=== PATIENT | female | born 1945 | race Caucasian/White ===

== ENCOUNTER 2016-11-18 12:36 | Outpatient (CLI) | payer MEDICARE, OTHER | END 2016-11-18 12:37 | disposition home or self-care (01) | DX: R73.09 Other abnormal glucose (principal); K70.31 Alcoholic cirrhosis of liver with ascites; Z13.29 Encounter for screening for other suspected endocrine disorder ==

== ENCOUNTER 2020-11-01 19:44 | Outpatient (CLI) | payer MEDICARE, OTHER | END 2020-11-01 19:45 | disposition critical access hospital (66) | LOC: EMS 19:44 | PROVIDERS: ATTEND Surgery | DX: R41.0 Disorientation, unspecified (principal) | CPT/HCPCS: A0425; A0427 ==

== ENCOUNTER 2020-11-01 20:18 | Inpatient (IN) | payer MEDICARE, OTHER ==
[2020-11-01] MEDS ORDERED: SODIUM CHLORIDE 0.9% 1,000 ML IV STA (20:32)
[2020-11-01 20:48] LABS: BASOPHILS % (AUTO) 0.2 %; EOSINOPHILS % (AUTO) 0.2 %; HGB - HEMOGLOBIN 11.7 g/dL (12.0-16.0); LYMPHOCYTES # (AUTO) 0.3 10^3/uL (1.5-3.5); LYMPHOCYTES % (AUTO) 3.2 %; MEAN CORPUSCULAR HGB CONC 34.2 g/dL (32.0-36.0); MEAN CORPUSCULAR VOLUME 90.7 fL (81.0-99.0); MEAN PLATELET VOLUME 10.5 fL (7.9-10.8); MONOCYTES # (AUTO) 0.3 10^3/uL (0.0-1.0); MONOCYTES % (AUTO) 3.5 %; NEUTROPHILS # (AUTO) 8.8 10^3/uL (1.5-6.6); NEUTROPHILS % (AUTO) 92.4 %; PLT - PLATELET COUNT 187 10^3/uL (130-450); RED BLOOD COUNT 3.77 10^6/uL (4.20-5.40); RED CELL DISTRIBUTION WIDTH 12.6 % (12.0-15.0); WHITE BLOOD COUNT 9.5 x10^3/uL (4.8-10.8)
[2020-11-01 21:03] LABS: ALBUMIN 3.6 g/dL (3.2-5.5); ALBUMIN/GLOBULIN RATIO 0.9 (1.0-2.2); BILIRUBIN,TOTAL 0.7 mg/dL (0.2-1.0); CREATININE 0.5 mg/dL (0.4-1.0); TOTAL PROTEIN 7.5 g/dL (6.7-8.2)
--- NOTE | 2020-11-01 21:08 | ED Physician Documentation ---
History of Present Illness - Stated complaint Stated Complaint: AMS - Chief complaint Chief Complaint: Neuro - History obtained from History obtained from: Patient, EMS - Additonal information Additional information: Patient is brought to the emergency department by EMS after being found down at home by medics. Medics state that the patient had been felt to be "goofy" by her son, who would talk to her on the phone yesterday. The son does not see the patient very often, and is not really familiar with how she was doing otherwise. Medics report that the son felt the patient may be was growing increasingly demented. However, she still lives at home by herself. The only medications the medics could find on scene were 6 years old, and included spironolactone, glimepiride, and Flexeril. It is not clear if the patient takes any meds currently, and son did not know. The patient also could not say whether she takes any medications or what exactly happened. Medics state that the son told them that he tried to call the patient several times today and could not get a hold of her, so sent his over to check on her. The could not get into the house, and so called EMS. EMS looked in the window and saw the patient down on the floor. When they got there, the house was cold and the patient was combative and confused. However, medics state the patient has calmed down somewhat in route. Patient denies any complaints at this time. No specific pain. No shortness of breath. No nausea. Review of Systems Ten Systems: 10 systems reviewed and negative Constitutional: reports: Reviewed and negative Eyes: reports: Reviewed and negative Ears: reports: Reviewed and negative Nose: reports: Reviewed and negative Throat: reports: Reviewed and negative Cardiac: reports: Reviewed and negative Respiratory: reports: Reviewed and negative GI: reports: Reviewed and negative : reports: Reviewed and negative Skin: reports: Reviewed and negative Musculoskeletal: reports: Reviewed and negative Neurologic: reports: Reviewed and negative Psychiatric: reports: Reviewed and negative Endocrine: reports: Reviewed and negative Immunocompromised: reports: Reviewed and negative PD PAST MEDICAL HISTORY - Past Medical History Past Medical History: Yes Cardiovascular: Hypertension Endocrine/Autoimmune: Type 2 diabetes - Allergies Allergies/Adverse Reactions: Allergies Allergy/AdvReac Type Severity Reaction Status Date / Time No Known Drug Allergies Allergy Verified 11/01/20 20:29 - Social History Does the pt smoke?: Yes Smoking Status: Current every day smoker PD ED PE NORMAL - Vitals Vital signs reviewed: Yes - General General: No acute distress, Well developed/nourished (Disheveled.), Other (Awake, and responsive, but's responses are somewhat slow.) - HEENT HEENT: Atraumatic, PERRL, EOMI, Moist mucous membranes - Neck Neck: Supple, no meningeal sign, No bony TTP - Cardiac Cardiac: RRR, No murmur, Strong equal pulses - Respiratory Respiratory: No respiratory distress, Clear bilaterally - Abdomen Abdomen: Soft, Non tender, Non distended - Back Back: No CVA TTP, No spinal TTP - Derm Derm: Normal color, Warm and dry, No rash - Extremities Extremities: No deformity, No edema, No calf tenderness / cord - Neuro Neuro: 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 She moves all 4 extremities equally. No dysarthria, but verbal responses are mildly delayed.) - Psych Psych: Normal mood, Normal affect Results - Vitals Vitals: Vital Signs - 24 hr 11/01/20 11/01/20 11/01/20 20:22 21:08 21:30 Temperature 36.5 C 36.6 C Heart Rate 85 76 82 Respiratory 18 21 20 Rate Blood Pressure 102/70 102/69 115/68 O2 Saturation 98 96 97 11/01/20 11/01/20 11/01/20 22:00 22:30 23:00 Temperature 36.6 C 36.6 C 36.6 C Heart Rate 78 72 71 Respiratory 20 20 18 Rate Blood Pressure 113/65 115/62 113/79 O2 Saturation 98 98 100 Oxygen O2 Source Room air - EKG (time done) 2030 Rate: Rate (enter#) (82) Rhythm: NSR [place]: Normal Intervals: Normal HI QRS: Normal Ischemia: Normal ST segments Compare to prior EKG: Old EKG unavailable Computer interpretation: Agree with computer - Labs Labs: Laboratory Tests 11/01/20 11/01/20 11/01/20 20:42 20:42 20:42 WBC 9.5 RBC 3.77 L Hgb 11.7 L Hct 34.2 L MCV 90.7 MCH 31.0 MCHC 34.2 RDW 12.6 Plt Count 187 MPV 10.5 Neut # (Auto) 8.8 H Lymph # (Auto) 0.3 L [place] # (Auto) 0.3 Eos # (Auto) 0.0 Baso # (Auto) 0.0 Absolute Nucleated RBC 0.00 Nucleated RBC % 0.0 Sodium 136 Potassium 3.4 L Chloride 99 L Carbon Dioxide 23 Anion Gap 14.0 H BUN 12 Creatinine 0.5 Estimated GFR (MDRD) 120 Glucose 148 H Lactic Acid 3.0 H* Calcium 9.0 Total Bilirubin 0.7 AST 28 ALT 20 Alkaline Phosphatase 60 Ammonia Total Creatine Kinase Total Protein 7.5 Albumin 3.6 Globulin 3.9 Albumin/Globulin Ratio 0.9 L Urine Color Urine Clarity Urine pH Ur Specific [place] Urine Protein Urine Glucose (UA) Urine Ketones Urine Occult Blood Urine Nitrite Urine Bilirubin Urine Urobilinogen Ur Leukocyte Esterase Urine RBC Urine WBC Ur Squamous Epith Cells Urine Bacteria Urine Casts Ur Microscopic Review Urine Culture Comments Nasal Adenovirus (PCR) Nasal B. parapertussis DNA (PCR) Nasal Coronavir 229E PCR Nasal Coronavir HKU1 PCR Nasal Coronavir NL63 PCR Nasal Coronavir OC43 PCR Nasal Enterovir/Rhinovir PCR Nasal Influenza B PCR Nasal Influenza A PCR Nasal Parainfluen 1 PCR Nasal Parainfluen 2 PCR Nasal Parainfluen 3 PCR Nasal Parainfluen 4 PCR Nasal RSV (PCR) Nasal B.pertussis DNA PCR Nasal C.pneumoniae (PCR) Sb Human Metapneumo PCR Nasal M.pneumoniae (PCR) Nasal SARS-CoV-2 (PCR) 11/01/20 11/01/20 11/01/20 20:42 21:14 21:56 WBC RBC Hgb Hct MCV MCH MCHC RDW Plt Count MPV Neut # (Auto) Lymph # (Auto) [place] # (Auto) Eos # (Auto) Baso # (Auto) Absolute Nucleated RBC Nucleated RBC % Sodium Potassium Chloride Carbon Dioxide Anion Gap BUN Creatinine Estimated GFR (MDRD) Glucose Lactic Acid Calcium Total Bilirubin AST ALT Alkaline Phosphatase Ammonia 11.0 Total Creatine Kinase 199 Total Protein Albumin Globulin Albumin/Globulin Ratio Urine Color Urine Clarity Urine pH Ur Specific [place] Urine Protein Urine Glucose (UA) Urine Ketones Urine Occult Blood Urine Nitrite Urine Bilirubin Urine Urobilinogen Ur Leukocyte Esterase Urine RBC Urine WBC Ur Squamous Epith Cells Urine Bacteria Urine Casts Ur Microscopic Review Urine Culture Comments Nasal Adenovirus (PCR) NOT DETECTED Nasal B. parapertussis DNA (PCR) NOT DETECTED Nasal Coronavir 229E PCR NOT DETECTED Nasal Coronavir HKU1 PCR NOT DETECTED Nasal Coronavir NL63 PCR NOT DETECTED Nasal Coronavir OC43 PCR NOT DETECTED Nasal Enterovir/Rhinovir PCR NOT DETECTED Nasal Influenza B PCR NOT DETECTED Nasal Influenza A PCR NOT DETECTED Nasal Parainfluen 1 PCR NOT DETECTED Nasal Parainfluen 2 PCR NOT DETECTED Nasal Parainfluen 3 PCR NOT DETECTED Nasal Parainfluen 4 PCR NOT DETECTED Nasal RSV (PCR) NOT DETECTED Nasal B.pertussis DNA PCR NOT DETECTED Nasal C.pneumoniae (PCR) NOT DETECTED Sb Human Metapneumo PCR NOT DETECTED Nasal M.pneumoniae (PCR) NOT DETECTED Nasal SARS-CoV-2 (PCR) NOT DETECTED 11/01/20 22:17 WBC RBC Hgb Hct MCV MCH MCHC RDW Plt Count MPV Neut # (Auto) Lymph # (Auto) [place] # (Auto) Eos # (Auto) Baso # (Auto) Absolute Nucleated RBC Nucleated RBC % Sodium Potassium Chloride Carbon Dioxide Anion Gap BUN Creatinine Estimated GFR (MDRD) Glucose Lactic Acid Calcium Total Bilirubin AST ALT Alkaline Phosphatase Ammonia Total Creatine Kinase Total Protein Albumin Globulin Albumin/Globulin Ratio Urine Color YELLOW Urine Clarity HAZY Urine pH 5.5 Ur Specific [place] 1.020 Urine Protein 30 H Urine Glucose (UA) NEGATIVE Urine Ketones TRACE Urine Occult Blood MODERATE H Urine Nitrite POSITIVE H Urine Bilirubin NEGATIVE Urine Urobilinogen 0.2 (NORMAL) Ur Leukocyte Esterase NEGATIVE Urine RBC 6-10 H Urine WBC 0-3 Ur Squamous Epith Cells FEW Squamous Urine Bacteria Many H Urine Casts 0-2 Course Granular Ur Microscopic Review INDICATED Urine Culture Comments INDICATED Nasal Adenovirus (PCR) Nasal B. parapertussis DNA (PCR) Nasal Coronavir 229E PCR Nasal Coronavir HKU1 PCR Nasal Coronavir NL63 PCR Nasal Coronavir OC43 PCR Nasal Enterovir/Rhinovir PCR Nasal Influenza B PCR Nasal Influenza A PCR Nasal Parainfluen 1 PCR Nasal Parainfluen 2 PCR Nasal Parainfluen 3 PCR Nasal Parainfluen 4 PCR Nasal RSV (PCR) Nasal B.pertussis DNA PCR Nasal C.pneumoniae (PCR) Sb Human Metapneumo PCR Nasal M.pneumoniae (PCR) Nasal SARS-CoV-2 (PCR) - Rads (name of study) CT head Radiology: Final report received, EMP read indepedently, See rad report (neg) PD MEDICAL DECISION MAKING - ED course Complexity details: reviewed results, re-evaluated patient, considered differential, d/w patient ED course: I did review records on this patient and found that the only record we had for her was of an ultrasound 6 years ago. This did show findings consistent with cirrhosis of the liver at that time. The patient was treated with IV fluids, and worked up with laboratory studies, including lactic acid and ammonia level. She was treated with IV fluids. EKG was unremarkable for acute findings. Lactic acid level was 3. CK was normal. Patient's laboratory studies otherwise were unremarkable, but her urinalysis was positive for infection, and pt was treated with Rocephin for this. CT scan of the head did not show any acute findings. I discussed the case with Dr. Castillo, who has agreed to admit the patient to her service. Departure - Departure Disposition: [facility] DC/Xfer Clinical Impression: Altered mental status Qualifiers: Altered mental status type: delirium Qualified Code(s): R41.0 - Disorientation, unspecified UTI (urinary tract infection) Qualifiers: Urinary tract infection type: acute cystitis Hematuria presence: with hematuria Qualified Code(s): N30.01 - Acute cystitis with hematuria Condition: Serious Discharge Date/Time: 11/02/20 00:36
[2020-11-01 22:27] LABS: BILIRUBIN,URINE NEGATIVE (NEGATIVE); CLARITY,URINE HAZY (CLEAR); GLUCOSE, URINE (UA) NEGATIVE (NEGATIVE); KETONES,URINE (UA) TRACE mg/dL (NEGATIVE); LEUKOCYTE ESTERASE, URINE NEGATIVE (NEGATIVE); NITRITE,URINE POSITIVE (NEGATIVE); OCCULT BLOOD,URINE MODERATE (NEGATIVE); PH,URINE 5.5 PH (5.0-7.5); PROTEIN,URINE 30 mg/dL (NEGATIVE); UROBILINOGEN,URINE 0.2 (NORMAL) E.U./dL (NORMAL)
[2020-11-01 22:31] LABS: BACTERIA,URINE Many /HPF (None Seen); CASTS, URINE 0-2 Course Granular /LPF; SQUAMOUS EPITHELIAL CELL,UR FEW Squamous (<= Few)
[2020-11-01] MEDS ORDERED: cefTRIAXone 2 GM in SODIUM CHLORIDE 0.9% MINIBAG 100 ML IV STA (22:34)
[2020-11-01] MEDS ORDERED: cefTRIAXone 2 GM VIAL ONE (22:48)
[2020-11-01 23:15] LABS: C. PNEUMONIAE- RESP PCR PANEL NOT DETECTED
[2020-11-01] MEDS ORDERED: SODIUM CHLORIDE FLUSH 0.9% 10 ML SYRINGE IVP PRN (23:28)
[2020-11-01] MEDS ORDERED: ACETAMINOPHEN 325 MG TABLET PO PRN (23:28)
[2020-11-02] MEDS: D5NS W/20 MEQ KCL 1,000 ML IV SCH ×2 (00:44→13:04)
[2020-11-02] MEDS: POTASSIUM CHLOR 10 MEQ/100 ML 10 MEQ/100 ML BAG IV SCH ×4 (00:44→04:57)
[2020-11-02] MEDS: SODIUM CHLORIDE FLUSH 0.9% 10 ML SYRINGE IVP SCH ×3 (00:45→17:52)
--- NOTE | 2020-11-02 01:56 | HISTORY & PHYSICAL EXAMINATION ---
DATE OF SERVICE: 11/01/2020 Physician: Angelica Castillo MD HISTORY OF PRESENT ILLNESS: This is a 75-year-old white female who lives alone. There apparently is a history of cirrhosis of the liver according to our EMR and possibly diabetes. The patient was brought to the emergency room by paramedics after she was found down. Apparently, the son had tried to reach her and yesterday thought that "she sounded goofy" and today could not reach her and therefore jhad his go there, through the window saw she was on the floor and she summoned paramedics. They found her on the scene lying on her floor. She was combative and confused, but they were able to calm her down. The house was cold and there apparently was no food in the house. They found empty bottles of spironolactone and glimepiride and Flexeril, but those were 6-year-old bottles. In the ER and en route, she had no specific complaints such as shortness of breath, nausea, fever or pain. In the ER, she was speaking with garbled answers and also occasionally appropriate, but very slow to respond. ER workup included a CT of the head that was unremarkable and labs that showed elevated lactic acid level at 3 and an abnormal urinalysis consistent with a UTI. She is being admitted for management of altered mental status possibly related to a UTI. PAST MEDICAL HISTORY: Possibly diabetes, possibly cirrhosis of the liver. Both of these are presumed given her medications of spironolactone and glimepiride and what [facility] has on record. FAMILY HISTORY: Unable to obtain this. SOCIAL HISTORY: Unable to obtain this. The son did speak to the ER doctor and there apparently was a history of alcohol use in the past, but it is unknown if it was abuse and if she uses alcohol now. The patient does live alone. The son did say that he was concerned that the patient was previously starting to show signs of dementia. REVIEW OF SYSTEMS: Performed from chart review, since the patient cannot answer reliably and the pertinent positives are listed, the rest are negative in a comprehensive review. PHYSICAL EXAMINATION GENERAL: Elderly white female who is disheveled and appears older than her age. She does not appear to be in any distress. She is looking around, when asked if she is hungry she nods her head to me. VITAL SIGNS: Blood pressure 115/75, heart rate 70-80 and regular, afebrile, and room air saturation 100%. HEENT: Shows her to be disheveled and have dry oral mucosa. NECK: No JVD. CHEST: Clear. HEART: Normal heart sounds. ABDOMEN: Soft, nontender. EXTREMITIES: No clubbing, cyanosis or edema. 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 NEUROLOGIC: Nonfocal motor exam except confusion. LABORATORY DATA: Sodium 136, potassium 3.4, anion gap 14, BUN 12, creatinine 0.5, glucose 148. Lactic acid 3.0. Ammonia level 11. Normal liver tests. Normal CK of 199. White blood count 9.5, hemoglobin 11.7, platelet count 187. COVID test was negative. Urinalysis showed heavy protein, moderate occult blood, positive nitrites, high RBCs, and many bacteria and a culture was indicated. IMAGING: No reports available, but verbal report to me from the ER doctor was that her chest x-ray was unremarkable and head CT was unremarkable. EKG: None is shown to be done. IMPRESSION/DIAGNOSES 1. Altered mental status. Possibly from infection but also consider Wernicke's encephalopathy from alcohol, or underlying general dementia. 2. Urinary tract infection. 3. Fall at home. No rhabdo, per normal CK. 4. Hypokalemia. 5. Malnutrition. 6. History of cirrhosis. 7. History of diabetes mellitus. PLAN: Admit the patient to Inpatient status. Start IV fluids containing D5 with electrolytes and start glucose checks. Obtain A1c to check her diabetic status. Blood and urine cultures have already been sent and therefore continue Rocephin, 1 dose IV was already given in the ER. Await culture results to tailor treatment. Follow her lactic acid level until it has normalized. Follow her electrolytes, including magnesium and phosphorus daily. Her medication list will need to be reconciled regarding if any current management of prescription medications is being used. She will need physical therapy and occupational therapy evaluation and may likely need SNF and alternative living situation following that. Dietary consult regarding a malnutrition screen and for recommendations for diet are ordered. Social work consult regarding possible APS report regarding the living situation at home. DEEP VENOUS THROMBOSIS PROPHYLAXIS: Pharmacotherapy. CODE STATUS: FULL CODE. ATTESTATION: Patient is expected to be discharged or transferred to another facility within 96 hours: Yes. cc: Jewel Martinez MD TD: 11/01/2020 23:56 MTDD
[2020-11-02 05:06] LABS: BASOPHILS % (AUTO) 0.2 %; EOSINOPHILS % (AUTO) 0.2 %; HGB - HEMOGLOBIN 9.8 g/dL (12.0-16.0); LYMPHOCYTES # (AUTO) 0.3 10^3/uL (1.5-3.5); LYMPHOCYTES % (AUTO) 6.3 %; MEAN CORPUSCULAR HEMOGLOBIN 30.7 pg (27.0-31.0); MEAN CORPUSCULAR HGB CONC 34.3 g/dL (32.0-36.0); MEAN CORPUSCULAR VOLUME 89.7 fL (81.0-99.0); MEAN PLATELET VOLUME 11.2 fL (7.9-10.8); MONOCYTES # (AUTO) 0.3 10^3/uL (0.0-1.0); MONOCYTES % (AUTO) 5.1 %; NEUTROPHILS # (AUTO) 4.4 10^3/uL (1.5-6.6); NEUTROPHILS % (AUTO) 87.8 %; PLT - PLATELET COUNT 156 10^3/uL (130-450); RED BLOOD COUNT 3.19 10^6/uL (4.20-5.40); RED CELL DISTRIBUTION WIDTH 12.5 % (12.0-15.0); WHITE BLOOD COUNT 5.1 x10^3/uL (4.8-10.8)
[2020-11-02 05:14] LABS: CALCIUM 8.3 mg/dL (8.5-10.3); CREATININE 0.5 mg/dL (0.4-1.0); MAGNESIUM 1.3 mg/dL (1.7-2.8); PHOSPHORUS 2.4 mg/dL (2.5-4.6)
--- NOTE | 2020-11-02 07:38 | CT Report ---
PROCEDURE: HEAD WO INDICATIONS: aloc, fall TECHNIQUE: Noncontrast 4.5 mm thick angled axial sections acquired from the foramen magnum to the vertex. For r adiation dose reduction, the following was used: automated exposure control, adjustment of mA and/or kV according to patient size. COMPARISON: None available. FINDINGS: Image quality: Excellent. CSF spaces: Basal cisterns are patent. No extra-axial fluid collections. The ventricles are symmet reji in size and shape. Brain: There is a 3.2 cm diameter cystic lesion in the anterior left frontal lobe No intracranial bl eeds. There is cerebral volume loss for age, with resultant ventricular and sulcal prominence. Ther e are periventricular and deep white matter chronic small vessel ischemic changes. There is intracra nial internal carotid artery and vertebral artery atherosclerosis. Skull and face: Calvarium and visualized facial bones appear intact, without suspicious lesions. Sinuses: Visualized sinuses and mastoids are clear. IMPRESSION: 1. 3.2 cm cystic lesion in the left frontal lobe. Recommend MRI of the brain with and without contras t for definitive characterization. 2. No intracranial hemorrhage. 3. No fracture. 4. Findings and recommendations discussed with Dr. Latia Lantigua on 11/02/2020 at 0737 hours Reviewed by: Alexandria Frankel MD, PhD on 11/02/2020 7:37 AM PST Approved by: Alexandria Frankel MD, PhD on 11/02/2020 7:37 AM PST Station ID: [id number]
--- NOTE | 2020-11-02 07:39 | ED Physician Documentation ---
ED Addendum - Addendum Addendum: 11/02/20 07:37 Report received from radiology at 0730, they recommend a MRI with and without contrast while inpatient for a frontal brain cyst. A message was left on the hospitalist phone for follow-up at 2940.
[2020-11-02] MEDS ORDERED: MAGNESIUM SULFATE 2 GRAM 2 GM/50 ML BAG IV ONE (08:15)
--- NOTE | 2020-11-02 08:52 | XRAY Report ---
PROCEDURE: Chest 1 View X-Ray INDICATIONS: SOB TECHNIQUE: One view of the chest was acquired. COMPARISON: None. FINDINGS: Surgical changes and devices: None. Lungs and pleura: There are bilateral oval masslike opacities within the lungs, measuring approximat alphonso 5.6 x 4.4 cm in the right perihilar region and 4.9 x 3.4 cm in the left suprahilar region. Periph eral interstitial opacities are demonstrated bilaterally. No pleural effusions or pneumothorax. Mediastinum: Mediastinal contours appear normal. Heart size is normal. Bones and chest wall: No suspicious bony lesions. Overlying soft tissues appear unremarkable. IMPRESSION: 1. Bilateral masslike opacities demonstrated within the lungs suspicious for neoplasm. Recommend furt her evaluation with CT. Reviewed by: Abhi Hackett MD on 11/02/2020 8:51 AM RUST Approved by: Abhi Hackett MD on 11/02/2020 8:51 AM RUST Station ID: [id number]
[2020-11-02] MEDS ORDERED: cefTRIAXone 1 GM in SODIUM CHLORIDE 0.9% MINIBAG 100 ML IV SCH (09:00)
[2020-11-02] MEDS: cefTRIAXone 1 GM in SODIUM CHLORIDE 0.9% MINIBAG 100 ML IV SCH (09:06)
[2020-11-02] MEDS: ENOXAPARIN 40 MG/0.4 ML SYRINGE SUBQ SCH (09:11)
[2020-11-02] MEDS: FAMOTIDINE 20 MG TABLET PO SCH ×2 (09:12→09:23)
[2020-11-02] MEDS ORDERED: cefTRIAXone 1 GM VIAL ONE (09:18)
[2020-11-02] MEDS: NEUTRA-PHOS 250 MG TABLET PO SCH ×3 (09:22→17:52)
[2020-11-02] MEDS ORDERED: IOVERSOL 320 100 ML VIAL IVP ONE ×3 (09:51→13:37)
--- NOTE | 2020-11-02 10:58 | PHARMACY PROGRESS NOTE ---
- Best Possible Medication History Admit Date and Time: 11/01/20 8195 Processed by: Pharmacy Medication History completed: Yes Patient Interview: Completed Secondary Source(s): Physician records, Pharmacy records, Insurance records (PATIENT UNABLE TO BE INTERVIEWED. NO RECORDS FOUND FOR HOME MEDICATIONS ) As the person ultimately responsible for medication therapy, providers are able to order a medication from an existing home medication list in [facility] via the "Reconcile Routine" prior to Confirmation of that medication by software support specialist. Such practice is discouraged except when the physician, in their clinical judgment, deems that a medical need exists for a medication without regard to previous use.
[2020-11-02] MEDS: NICOTINE 14 MG PATCH TOP SCH (11:39)
[2020-11-02 12:18] LABS: HEMOGLOBIN A1c% 6.5 % (4.27-6.07)
--- NOTE | 2020-11-02 12:48 | CT Report ---
PROCEDURE: CHEST W INDICATIONS: masslike, and SOB CONTRAST: IV CONTRAST: Optiray 320 ml: 100 PO CONTRAST: *NO PO CONTRAST TECHNIQUE: After the administration of intravenous contrast, 5 mm thick sections acquired from the pulmonary api shila to the posterior costophrenic angles. 7 mm thick coronal MIP reformats were acquired. For radia tion dose reduction, the following was used: automated exposure control, adjustment of mA and/or kV according to patient size. COMPARISON: Chest radiograph from the same day. FINDINGS: Image quality: Excellent. Lungs and pleura: 3.5 x 4.2 x 4 cm solid lobulated mass in posterior aspect of left upper lobe adjace nt to the oblique fissure is noted extending to left suprahilar region and extending to involve later al pleura of left upper lobe. There is also a 4.7 x 3.9 x 4 cm soft tissue mass in left infrahilar re gion. A lobulated soft tissue density mass with internal cavitation is seen in posterior aspect of ri ght lower lobe and measures up to 3.9 x 5 x 5.5 cm in size. Finding is highly suggestive of multiple malignant pulmonary masses. Increased interstitial reticular nodular thickening in periphery of bilat eral lung crowell are seen. Additional nodular pleural thickening are seen in posterior lateral aspect of right upper lobe and measures up to 1.4 cm in size series 20 image 122. 1.8 x 0.7 cm solid nodule is also noted in anterior inferior aspect of left lower lobe extending to the oblique fissure series 20 image 176. Trace left pleural effusion is seen with adjacent left basilar atelectasis. No pneumot horax. Central and peripheral airways are patent and normal in caliber. Mediastinum: Heart size is normal. No pericardial effusion. Extensive soft tissue density within me diastinum and bilateral hilar region are seen consistent with mediastinal or hilar lymphadenopathy. M oderate amount of atherosclerotic calcifications are seen in coronary vessels and thoracic aorta. Pro minence of main pulmonary artery size is seen measuring up to 3.9 cm in diameter. No thoracic aortic aneurysm or dissection. Esophagus is normal in caliber. No hiatal hernia. Bones and chest wall: No suspicious bony lesions. Degenerative endplate changes are noted throughout thoracic spine. Chronic appearing anterior wedge compression deformity at L1 and L2 levels are seen. No axillary or supraclavicular adenopathy by size criteria. Thyroid gland is within normal limits. Abdomen: Slightly lobulated liver contour is seen with ill-defined hypodense area involving anterior periphery of right hepatic lobe. There is a 1.4 x 2 cm hypodense nodule seen in left adrenal gland wh ich may represent adenoma. Adrenal metastasis cannot be excluded. IMPRESSION: 1. Multiple large lobulated and solid appearing masses are seen scattered in left upper lobe, right l ower lobe and left infrahilar region extending to left hilum with additional nodular density seen adj acent to posterior lateral pleura of right upper lobe and anterior aspect of left lower lobe as descr ibed in detail above highly suggestive of primary or metastatic pulmonary malignant process. Small le ft pleural effusion and adjacent left basilar atelectasis. No pneumothorax. Airway is patent. 2. Mediastinal or hilar lymphadenopathy is suggestive of metastatic lymphadenopathy. 3. Prominence of main pulmonary artery which may indicate pulmonary vascular hypertension. 4. Ill-defined area of hypodensity within anterior periphery of right hepatic lobe with cirrhotic elaine earing liver concerning for liver metastasis. 5. Hypodense left adrenal nodule which may represent adrenal adenoma. Adrenal metastasis cannot be ex cluded. 6. Chronic appearing anterior wedge compression deformities at L1 and L2 levels. Reviewed by: Guillermo Lyon MD on 11/02/2020 12:46 PM PST Approved by: Guillermo Lyon MD on 11/02/2020 12:46 PM PST Station ID: [id number]
[2020-11-02] MEDS ORDERED: GLYCOPYRROLATE 1 MG/5 ML VIAL SUBQ PRN (12:49)
[2020-11-02] MEDS ORDERED: SCOPOLAMINE PATCH TOP SCH (13:00)
--- NOTE | 2020-11-02 13:36 | PROVIDER PROGRESS NOTE ---
Subjective - Prog Note Date Prog Note Date: 11/02/20 - Subjective Pt reports feeling: No change Subjective: pt is still confused, and present some shortness of breath and quite agitated and restless. I did not see pt has any seizure activity at this point. I called pt's son Apollo, report pt has masslike picture in CXR, CT is ordered and result is pending now. Current Medications - Current Medications Current Medications: Active Medications Acetaminophen (Acetaminophen 325 Mg Tablet) 650 mg PO Q4HR PRN PRN Reason: Pain or Fever > 38C (100.4F) Enoxaparin Sodium (Enoxaparin 40 Mg/0.4 Ml Syringe) 40 mg SUBQ DAILY [facility] Last Admin: 11/02/20 09:11 Dose: 40 mg Documented by: Famotidine (Famotidine 20 Mg Tablet) 20 mg PO BID [facility] Last Admin: 11/02/20 09:23 Dose: Not Given Documented by: Glycopyrrolate (Glycopyrrolate 1 Mg/5 Ml Vial) 0.2 mg SUBQ Q4HR PRN PRN Reason: EXCESSIVE SECRETIONS Potassium Chloride/Dextrose/Sod Cl () 1,000 mls @ 100 mls/hr IV .Q10H [facility] Last Admin: 11/02/20 13:04 Dose: 100 mls/hr Documented by: Ceftriaxone Sodium 1 gm/ (Sodium Chloride) 100 mls @ 200 mls/hr IV [facility]ILY [facility] Stop: 11/07/20 09:29 Last Infusion: 11/02/20 10:00 Dose: Infused Documented by: Ioversol (Ioversol 320 100 Ml Vial) 100 ml IVP ONCE ONE Stop: 11/02/20 13:38 Last Admin: 11/02/20 13:37 Dose: 100 ml Documented by: Nicotine (Nicotine 14 Mg Patch) 1 patch TOP [facility] Last Admin: 11/02/20 11:39 Dose: 1 patch Documented by: Ondansetron HCl (Ondansetron 4 Mg/2 Ml Vial) 4 mg IVP Q6HR PRN PRN Reason: Nausea / Vomiting Sodium Chloride (Sodium Chloride Flush 0.9% 10 Ml Syringe) 10 ml IVP PRN PRN PRN Reason: NEEDED PER PROVIDER ORDERS Sodium Chloride (Sodium Chloride Flush 0.9% 10 Ml Syringe) 10 ml IVP 0100,0900,1700 [facility] Last Admin: 11/02/20 09:12 Dose: Not Given Documented by: Sodium Phosphate (Neutra-Phos 250 Mg Tablet) 250 mg PO TIDWM [facility] Last Admin: 11/02/20 11:39 Dose: 250 mg Documented by: No Known Home Medications 11/02/20 Objective - Vital Signs/Intake & Output Vital Signs: Vital Signs x48h Temp Pulse Resp BP Pulse Ox 11/02/20 13:17 36.4 C L 83 22 91/58 L 96 11/02/20 07:58 37.0 C 68 18 137/54 H Intake & Output: Intake & Output 10/30/20 10/31/20 11/01/20 11/02/20 23:59 23:59 23:59 23:59 Intake Total 1100 1545.000 Output Total 350 Balance 1100 1195.000 - Objective General Appearance: positive: Alert, Mild distress. negative: Lethargic Eyes Bilateral: positive: Normal inspection, PERRL, No lid inflammation ENT: positive: ENT inspection nml, No signs of dehydration. negative: Purulent nasal drainage Neck: positive: Nml inspection, Trachea midline. negative: Thyromegaly, Tracheal deviation Respiratory: positive: Chest non-tender, Rhonchi. negative: Wheezes, Rales Cardiovascular: positive: Regular rate & rhythm, No murmur. negative: Tachycardia, Bradycardia, Systolic murmur, Diastolic murmur Peripheral Pulses: 2+ Radial (R), 2+ Radial (L) Abdomen: positive: Non-tender, Nml bowel sounds, No distention. negative: Tenderness, Guarding, Rebound Back: positive: Nml inspection. negative: CVA tenderness (R), CVA tenderness (L) Skin: positive: Color nml, Warm, Dry. negative: Cyanosis, Diaphoresis, Pallor Extremities: positive: Non-tender, Nml appearance. negative: No pedal edema Neurologic/Psychiatric: positive: Sensation nml. negative: Weakness, Sensory loss, Facial droop, Slurred/abnml speech - Lab Results Fish Bones: 11/02/20 04:40 11/02/20 04:40 Other Labs: Lab Results x24hrs 11/02/20 11/02/20 11/02/20 Range/Units 08:38 04:40 04:40 WBC 5.1 (4.8-10.8) x10^3/uL RBC 3.19 L (4.20-5.40) 10^6/uL Hgb 9.8 L (12.0-16.0) g/dL Hct 28.6 L (37.0-47.0) % MCV 89.7 (81.0-99.0) fL MCH 30.7 (27.0-31.0) pg MCHC 34.3 (32.0-36.0) g/dL RDW 12.5 (12.0-15.0) % Plt Count 156 (130-450) 10^3/uL MPV 11.2 H (7.9-10.8) fL Neut # (Auto) 4.4 (1.5-6.6) 10^3/uL Lymph # (Auto) 0.3 L (1.5-3.5) 10^3/uL Walton # (Auto) 0.3 (0.0-1.0) 10^3/uL Eos # (Auto) 0.0 (0.0-0.7) 10^3/uL Baso # (Auto) 0.0 (0.0-0.1) 10^3/uL Absolute Nucleated RBC 0.00 x10^3/uL Nucleated RBC % 0.0 /100WBC Sodium (135-145) mmol/L Potassium (3.5-5.0) mmol/L Chloride (101-111) mmol/L Carbon Dioxide (21-32) mmol/L Anion Gap (6-13) BUN (6-20) mg/dL Creatinine (0.4-1.0) mg/dL Estimated GFR (MDRD) (>89) Glucose (70-100) mg/dL Estimat Average Glucose 140 H (70-100) mg/dL Hemoglobin A1c % 6.5 H (4.27-6.07) % Lactic Acid (0.5-2.2) mmol/L Calcium (8.5-10.3) mg/dL Phosphorus (2.5-4.6) mg/dL Magnesium (1.7-2.8) mg/dL Total Bilirubin (0.2-1.0) mg/dL AST (10-42) IU/L ALT (10-60) IU/L Alkaline Phosphatase (42-121) IU/L Ammonia (7-35) umol/L Total Creatine Kinase (22-269) IU/L Total Protein (6.7-8.2) g/dL Albumin (3.2-5.5) g/dL Globulin (2.1-4.2) g/dL Albumin/Globulin Ratio (1.0-2.2) TSH (0.34-5.60) uIU/mL Urine Color Urine Clarity (CLEAR) Urine pH (5.0-7.5) PH Ur Specific Ellerbe (1.002-1.030) Urine Protein (NEGATIVE) mg/dL Urine Glucose (UA) (NEGATIVE) mg/dL Urine Ketones (NEGATIVE) mg/dL Urine Occult Blood (NEGATIVE) Urine Nitrite (NEGATIVE) Urine Bilirubin (NEGATIVE) Urine Urobilinogen (NORMAL) E.U./dL Ur Leukocyte Esterase (NEGATIVE) Urine RBC (0-5) /HPF Urine WBC (0-5) /HPF Ur Squamous Epith Cells (<= Few) Urine Bacteria (None Seen) /HPF Urine Casts /LPF Ur Microscopic Review Urine Culture Comments Nasal Adenovirus (PCR) Nasal B. parapertussis DNA (PCR) Nasal Coronavir 229E PCR Nasal Coronavir HKU1 PCR Nasal Coronavir NL63 PCR Nasal Coronavir OC43 PCR Nasal Enterovir/Rhinovir PCR Nasal Influenza B PCR Nasal Influenza A PCR Nasal Parainfluen 1 PCR Nasal Parainfluen 2 PCR Nasal Parainfluen 3 PCR Nasal Parainfluen 4 PCR Nasal RSV (PCR) Nasal B.pertussis DNA PCR Nasal C.pneumoniae (PCR) Sb Human Metapneumo PCR Nasal M.pneumoniae (PCR) Nasal SARS-CoV-2 (PCR) Ethyl Alcohol < 5.0 mg/dL 11/02/20 11/01/20 11/01/20 Range/Units 04:40 23:43 22:17 WBC (4.8-10.8) x10^3/uL RBC (4.20-5.40) 10^6/uL Hgb (12.0-16.0) g/dL Hct (37.0-47.0) % MCV (81.0-99.0) fL MCH (27.0-31.0) pg MCHC (32.0-36.0) g/dL RDW (12.0-15.0) % Plt Count (130-450) 10^3/uL MPV (7.9-10.8) fL Neut # (Auto) (1.5-6.6) 10^3/uL Lymph # (Auto) (1.5-3.5) 10^3/uL Walton # (Auto) (0.0-1.0) 10^3/uL Eos # (Auto) (0.0-0.7) 10^3/uL Baso # (Auto) (0.0-0.1) 10^3/uL Absolute Nucleated RBC x10^3/uL Nucleated RBC % /100WBC Sodium 136 (135-145) mmol/L Potassium 3.7 (3.5-5.0) mmol/L Chloride 100 L (101-111) mmol/L Carbon Dioxide 22 (21-32) mmol/L Anion Gap 14.0 H (6-13) BUN 8 (6-20) mg/dL Creatinine 0.5 (0.4-1.0) mg/dL Estimated GFR (MDRD) 120 (>89) Glucose 169 H (70-100) mg/dL Estimat Average Glucose (70-100) mg/dL Hemoglobin A1c % (4.27-6.07) % Lactic Acid 2.1 (0.5-2.2) mmol/L Calcium 8.3 L (8.5-10.3) mg/dL Phosphorus 2.4 L (2.5-4.6) mg/dL Magnesium 1.3 L (1.7-2.8) mg/dL Total Bilirubin (0.2-1.0) mg/dL AST (10-42) IU/L ALT (10-60) IU/L Alkaline Phosphatase (42-121) IU/L Ammonia (7-35) umol/L Total Creatine Kinase (22-269) IU/L Total Protein (6.7-8.2) g/dL Albumin (3.2-5.5) g/dL Globulin (2.1-4.2) g/dL Albumin/Globulin Ratio (1.0-2.2) TSH (0.34-5.60) uIU/mL Urine Color YELLOW Urine Clarity HAZY (CLEAR) Urine pH 5.5 (5.0-7.5) PH Ur Specific Ellerbe 1.020 (1.002-1.030) Urine Protein 30 H (NEGATIVE) mg/dL Urine Glucose (UA) NEGATIVE (NEGATIVE) mg/dL Urine Ketones TRACE (NEGATIVE) mg/dL Urine Occult Blood MODERATE H (NEGATIVE) Urine Nitrite POSITIVE H (NEGATIVE) Urine Bilirubin NEGATIVE (NEGATIVE) Urine Urobilinogen 0.2 (NORMAL) (NORMAL) E.U./dL Ur Leukocyte Esterase NEGATIVE (NEGATIVE) Urine RBC 6-10 H (0-5) /HPF Urine WBC 0-3 (0-5) /HPF Ur Squamous Epith Cells FEW Squamous (<= Few) Urine Bacteria Many H (None Seen) /HPF Urine Casts 0-2 Course Granular /LPF Ur Microscopic Review INDICATED Urine Culture Comments INDICATED Nasal Adenovirus (PCR) Nasal B. parapertussis DNA (PCR) Nasal Coronavir 229E PCR Nasal Coronavir HKU1 PCR Nasal Coronavir NL63 PCR Nasal Coronavir OC43 PCR Nasal Enterovir/Rhinovir PCR Nasal Influenza B PCR Nasal Influenza A PCR Nasal Parainfluen 1 PCR Nasal Parainfluen 2 PCR Nasal Parainfluen 3 PCR Nasal Parainfluen 4 PCR Nasal RSV (PCR) Nasal B.pertussis DNA PCR Nasal C.pneumoniae (PCR) Sb Human Metapneumo PCR Nasal M.pneumoniae (PCR) Nasal SARS-CoV-2 (PCR) Ethyl Alcohol mg/dL 11/01/20 11/01/20 11/01/20 Range/Units 21:56 21:14 20:42 WBC (4.8-10.8) x10^3/uL RBC (4.20-5.40) 10^6/uL Hgb (12.0-16.0) g/dL Hct (37.0-47.0) % MCV (81.0-99.0) fL MCH (27.0-31.0) pg MCHC (32.0-36.0) g/dL RDW (12.0-15.0) % Plt Count (130-450) 10^3/uL MPV (7.9-10.8) fL Neut # (Auto) (1.5-6.6) 10^3/uL Lymph # (Auto) (1.5-3.5) 10^3/uL Walton # (Auto) (0.0-1.0) 10^3/uL Eos # (Auto) (0.0-0.7) 10^3/uL Baso # (Auto) (0.0-0.1) 10^3/uL Absolute Nucleated RBC x10^3/uL Nucleated RBC % /100WBC Sodium (135-145) mmol/L Potassium (3.5-5.0) mmol/L Chloride (101-111) mmol/L Carbon Dioxide (21-32) mmol/L Anion Gap (6-13) BUN (6-20) mg/dL Creatinine (0.4-1.0) mg/dL Estimated GFR (MDRD) (>89) Glucose (70-100) mg/dL Estimat Average Glucose (70-100) mg/dL Hemoglobin A1c % (4.27-6.07) % Lactic Acid (0.5-2.2) mmol/L Calcium (8.5-10.3) mg/dL Phosphorus (2.5-4.6) mg/dL Magnesium (1.7-2.8) mg/dL Total Bilirubin (0.2-1.0) mg/dL AST (10-42) IU/L ALT (10-60) IU/L Alkaline Phosphatase (42-121) IU/L Ammonia 11.0 (7-35) umol/L Total Creatine Kinase 199 (22-269) IU/L Total Protein (6.7-8.2) g/dL Albumin (3.2-5.5) g/dL Globulin (2.1-4.2) g/dL Albumin/Globulin Ratio (1.0-2.2) TSH (0.34-5.60) uIU/mL Urine Color Urine Clarity (CLEAR) Urine pH (5.0-7.5) PH Ur Specific Ellerbe (1.002-1.030) Urine Protein (NEGATIVE) mg/dL Urine Glucose (UA) (NEGATIVE) mg/dL Urine Ketones (NEGATIVE) mg/dL Urine Occult Blood (NEGATIVE) Urine Nitrite (NEGATIVE) Urine Bilirubin (NEGATIVE) Urine Urobilinogen (NORMAL) E.U./dL Ur Leukocyte Esterase (NEGATIVE) Urine RBC (0-5) /HPF Urine WBC (0-5) /HPF Ur Squamous Epith Cells (<= Few) Urine Bacteria (None Seen) /HPF Urine Casts /LPF Ur Microscopic Review Urine Culture Comments Nasal Adenovirus (PCR) NOT DETECTED Nasal B. parapertussis DNA (PCR) NOT DETECTED Nasal Coronavir 229E PCR NOT DETECTED Nasal Coronavir HKU1 PCR NOT DETECTED Nasal Coronavir NL63 PCR NOT DETECTED Nasal Coronavir OC43 PCR NOT DETECTED Nasal Enterovir/Rhinovir PCR NOT DETECTED Nasal Influenza B PCR NOT DETECTED Nasal Influenza A PCR NOT DETECTED Nasal Parainfluen 1 PCR NOT DETECTED Nasal Parainfluen 2 PCR NOT DETECTED Nasal Parainfluen 3 PCR NOT DETECTED Nasal Parainfluen 4 PCR NOT DETECTED Nasal RSV (PCR) NOT DETECTED Nasal B.pertussis DNA PCR NOT DETECTED Nasal C.pneumoniae (PCR) NOT DETECTED Sb Human Metapneumo PCR NOT DETECTED Nasal M.pneumoniae (PCR) NOT DETECTED Nasal SARS-CoV-2 (PCR) NOT DETECTED Ethyl Alcohol mg/dL 11/01/20 11/01/20 11/01/20 Range/Units 20:42 20:42 20:42 WBC 9.5 (4.8-10.8) x10^3/uL RBC 3.77 L (4.20-5.40) 10^6/uL Hgb 11.7 L (12.0-16.0) g/dL Hct 34.2 L (37.0-47.0) % MCV 90.7 (81.0-99.0) fL MCH 31.0 (27.0-31.0) pg MCHC 34.2 (32.0-36.0) g/dL RDW 12.6 (12.0-15.0) % Plt Count 187 (130-450) 10^3/uL MPV 10.5 (7.9-10.8) fL Neut # (Auto) 8.8 H (1.5-6.6) 10^3/uL Lymph # (Auto) 0.3 L (1.5-3.5) 10^3/uL Walton # (Auto) 0.3 (0.0-1.0) 10^3/uL Eos # (Auto) 0.0 (0.0-0.7) 10^3/uL Baso # (Auto) 0.0 (0.0-0.1) 10^3/uL Absolute Nucleated RBC 0.00 x10^3/uL Nucleated RBC % 0.0 /100WBC Sodium 136 (135-145) mmol/L Potassium 3.4 L (3.5-5.0) mmol/L Chloride 99 L (101-111) mmol/L Carbon Dioxide 23 (21-32) mmol/L Anion Gap 14.0 H (6-13) BUN 12 (6-20) mg/dL Creatinine 0.5 (0.4-1.0) mg/dL Estimated GFR (MDRD) 120 (>89) Glucose 148 H (70-100) mg/dL Estimat Average Glucose (70-100) mg/dL Hemoglobin A1c % (4.27-6.07) % Lactic Acid 3.0 H* (0.5-2.2) mmol/L Calcium 9.0 (8.5-10.3) mg/dL Phosphorus (2.5-4.6) mg/dL Magnesium (1.7-2.8) mg/dL Total Bilirubin 0.7 (0.2-1.0) mg/dL AST 28 (10-42) IU/L ALT 20 (10-60) IU/L Alkaline Phosphatase 60 (42-121) IU/L Ammonia (7-35) umol/L Total Creatine Kinase (22-269) IU/L Total Protein 7.5 (6.7-8.2) g/dL Albumin 3.6 (3.2-5.5) g/dL Globulin 3.9 (2.1-4.2) g/dL Albumin/Globulin Ratio 0.9 L (1.0-2.2) TSH (0.34-5.60) uIU/mL Urine Color Urine Clarity (CLEAR) Urine pH (5.0-7.5) PH Ur Specific Ellerbe (1.002-1.030) Urine Protein (NEGATIVE) mg/dL Urine Glucose (UA) (NEGATIVE) mg/dL Urine Ketones (NEGATIVE) mg/dL Urine Occult Blood (NEGATIVE) Urine Nitrite (NEGATIVE) Urine Bilirubin (NEGATIVE) Urine Urobilinogen (NORMAL) E.U./dL Ur Leukocyte Esterase (NEGATIVE) Urine RBC (0-5) /HPF Urine WBC (0-5) /HPF Ur Squamous Epith Cells (<= Few) Urine Bacteria (None Seen) /HPF Urine Casts /LPF Ur Microscopic Review Urine Culture Comments Nasal Adenovirus (PCR) Nasal B. parapertussis DNA (PCR) Nasal Coronavir 229E PCR Nasal Coronavir HKU1 PCR Nasal Coronavir NL63 PCR Nasal Coronavir OC43 PCR Nasal Enterovir/Rhinovir PCR Nasal Influenza B PCR Nasal Influenza A PCR Nasal Parainfluen 1 PCR Nasal Parainfluen 2 PCR Nasal Parainfluen 3 PCR Nasal Parainfluen 4 PCR Nasal RSV (PCR) Nasal B.pertussis DNA PCR Nasal C.pneumoniae (PCR) Sb Human Metapneumo PCR Nasal M.pneumoniae (PCR) Nasal SARS-CoV-2 (PCR) Ethyl Alcohol mg/dL 11/01/20 Range/Units 04:40 WBC (4.8-10.8) x10^3/uL RBC (4.20-5.40) 10^6/uL Hgb (12.0-16.0) g/dL Hct (37.0-47.0) % MCV (81.0-99.0) fL MCH (27.0-31.0) pg MCHC (32.0-36.0) g/dL RDW (12.0-15.0) % Plt Count (130-450) 10^3/uL MPV (7.9-10.8) fL Neut # (Auto) (1.5-6.6) 10^3/uL Lymph # (Auto) (1.5-3.5) 10^3/uL Walton # (Auto) (0.0-1.0) 10^3/uL Eos # (Auto) (0.0-0.7) 10^3/uL Baso # (Auto) (0.0-0.1) 10^3/uL Absolute Nucleated RBC x10^3/uL Nucleated RBC % /100WBC Sodium (135-145) mmol/L Potassium (3.5-5.0) mmol/L Chloride (101-111) mmol/L Carbon Dioxide (21-32) mmol/L Anion Gap (6-13) BUN (6-20) mg/dL Creatinine (0.4-1.0) mg/dL Estimated GFR (MDRD) (>89) Glucose (70-100) mg/dL Estimat Average Glucose (70-100) mg/dL Hemoglobin A1c % (4.27-6.07) % Lactic Acid (0.5-2.2) mmol/L Calcium (8.5-10.3) mg/dL Phosphorus (2.5-4.6) mg/dL Magnesium (1.7-2.8) mg/dL Total Bilirubin (0.2-1.0) mg/dL AST (10-42) IU/L ALT (10-60) IU/L Alkaline Phosphatase (42-121) IU/L Ammonia (7-35) umol/L Total Creatine Kinase (22-269) IU/L Total Protein (6.7-8.2) g/dL Albumin (3.2-5.5) g/dL Globulin (2.1-4.2) g/dL Albumin/Globulin Ratio (1.0-2.2) TSH 1.52 (0.34-5.60) uIU/mL Urine Color Urine Clarity (CLEAR) Urine pH (5.0-7.5) PH Ur Specific Ellerbe (1.002-1.030) Urine Protein (NEGATIVE) mg/dL Urine Glucose (UA) (NEGATIVE) mg/dL Urine Ketones (NEGATIVE) mg/dL Urine Occult Blood (NEGATIVE) Urine Nitrite (NEGATIVE) Urine Bilirubin (NEGATIVE) Urine Urobilinogen (NORMAL) E.U./dL Ur Leukocyte Esterase (NEGATIVE) Urine RBC (0-5) /HPF Urine WBC (0-5) /HPF Ur Squamous Epith Cells (<= Few) Urine Bacteria (None Seen) /HPF Urine Casts /LPF Ur Microscopic Review Urine Culture Comments Nasal Adenovirus (PCR) Nasal B. parapertussis DNA (PCR) Nasal Coronavir 229E PCR Nasal Coronavir HKU1 PCR Nasal Coronavir NL63 PCR Nasal Coronavir OC43 PCR Nasal Enterovir/Rhinovir PCR Nasal Influenza B PCR Nasal Influenza A PCR Nasal Parainfluen 1 PCR Nasal Parainfluen 2 PCR Nasal Parainfluen 3 PCR Nasal Parainfluen 4 PCR Nasal RSV (PCR) Nasal B.pertussis DNA PCR Nasal C.pneumoniae (PCR) Sb Human Metapneumo PCR Nasal M.pneumoniae (PCR) Nasal SARS-CoV-2 (PCR) Ethyl Alcohol mg/dL ABX Reporting Has patient been on IV antibiotics over the past 48 hours?: Yes Assessment/Plan - Problem List (1) Altered mental status Impression: Patient still present altered mental status, Restless and some agitation. CT of the head show no acute ischemia or hemorrhage But show left frontal likely cys tic lesion 3.2 cm, CAT scan of the chest show bilaterally multiple large lung masses, highly suggestion pulmonary malignancy, and liver Metastasis. We will continue neuro Check and monitor whether patient has seizure activity. We will discuss with the patient family for further care plan Qualifiers: Altered mental status type: delirium Qualified Code(s): R41.0 - Disorientation, unspecified (2) UTI (urinary tract infection) Impression: UA culture show growing gram negative rods, We will continue treated with antibiotics Rocephin Qualifiers: Urinary tract infection type: acute cystitis Hematuria presence: with hematuria Qualified Code(s): N30.01 - Acute cystitis with hematuria (3) Pulmonary malignant neoplasm Impression: CAT scan of the chest show patient had multiple bilaterally large lung masses With mediastinal and hilar lymphadenopathy, highly suggestive Primary or metastatic pulmonary malignancy process. Patient has a long history and still cigarette smoker. We will discuss with family for next care plan, Now patient had 97% sats on room air. (4) Liver metastasis Impression: CAT scan also suggestion liver metastasis. Now liver enzyme is in the normal range. We discussed family for further Care plan (6) Fall at home Impression: Patient had a fall in the home, CK is in normal range, creatinine in the normal range. We will continue for fall precaution, We discussed with family for further care plan and to continue physical therapist right now (7) Diabetes mellitus Impression: Patient had a slightly elevated glucose, A1c 6.5, we will start with sliding scale, check her sugar and hypoglycemia protocol (8) Hypomagnesemia Impression: Patient had magnesium 1.3, we will replace magnesium and recheck
[2020-11-02] MEDS ORDERED: LORazepam 2 MG/ML VIAL IVP SCH ×2 (14:00→18:00)
[2020-11-02 15:40] LABS: MUDS CUTOFF CONCENTRATIONS CUTOFF CONC BELOW:
[2020-11-02 16:00] LABS: AMPHETAMINE SCREEN,URINE NEGATIVE (NEGATIVE); BENZODIAZEPINES SCREEN, URINE NEGATIVE (NEGATIVE); COCAINE SCREEN URINE NEGATIVE (NEGATIVE); METHADONE SCREEN, URINE NEGATIVE (NEGATIVE); METHAMPHETAMINES SCREEN, URINE NEGATIVE (NEGATIVE); OPIATE SCREEN, URINE NEGATIVE (NEGATIVE); OXYCODONE SCREEN, URINE NEGATIVE (NEGATIVE); PROPOXYPHENE SCREEN, URINE NEGATIVE (NEGATIVE); TRICYCLIC ANTIDEPRESSANT,URINE NEGATIVE (NEGATIVE)
[2020-11-02] MEDS: INSULIN ASPART 300 UNIT/3 ML PEN SUBQ SCH ×2 (17:54→21:05)
[2020-11-02] MEDS ORDERED: GADOBUTROL 7.5 MMOL/7.5 ML VIAL ONE (18:07)
[2020-11-02] MEDS ORDERED: GADOBUTROL 7.5 MMOL/7.5 ML VIAL IVP ONE (18:37)
[2020-11-02] MEDS ORDERED: IPRATROPIUM/ALBUTEROL 3 ML NEB INH PRN (18:37)
[2020-11-02] MEDS ORDERED: ALBUTEROL NEB 2.5 MG/3 ML INH PRN (18:37)
[2020-11-02] MEDS: ONDANSETRON 4 MG/2 ML VIAL IVP PRN (21:12)
[2020-11-03] MEDS: SODIUM CHLORIDE FLUSH 0.9% 10 ML SYRINGE IVP SCH ×3 (00:37→16:41)
[2020-11-03] MEDS: D5NS W/20 MEQ KCL 1,000 ML IV SCH ×2 (02:58→16:40)
[2020-11-03 05:15] LABS: BASOPHILS % (AUTO) 0.3 %; EOSINOPHILS % (AUTO) 0.5 %; HGB - HEMOGLOBIN 9.9 g/dL (12.0-16.0); LYMPHOCYTES # (AUTO) 0.5 10^3/uL (1.5-3.5); LYMPHOCYTES % (AUTO) 12.4 %; MEAN CORPUSCULAR HGB CONC 32.7 g/dL (32.0-36.0); MEAN CORPUSCULAR VOLUME 91.8 fL (81.0-99.0); MEAN PLATELET VOLUME 11.4 fL (7.9-10.8); MONOCYTES # (AUTO) 0.3 10^3/uL (0.0-1.0); MONOCYTES % (AUTO) 6.8 %; NEUTROPHILS # (AUTO) 2.9 10^3/uL (1.5-6.6); NEUTROPHILS % (AUTO) 79.5 %; PLT - PLATELET COUNT 156 10^3/uL (130-450); RED CELL DISTRIBUTION WIDTH 12.8 % (12.0-15.0); WHITE BLOOD COUNT 3.7 x10^3/uL (4.8-10.8)
[2020-11-03 05:26] LABS: CALCIUM 8.1 mg/dL (8.5-10.3); CREATININE 0.5 mg/dL (0.4-1.0); MAGNESIUM 1.5 mg/dL (1.7-2.8); PHOSPHORUS 2.7 mg/dL (2.5-4.6)
[2020-11-03] MEDS ORDERED: POTASSIUM CHLORIDE 20 MEQ TABLET PO ONE (08:24)
[2020-11-03] MEDS ORDERED: MAGNESIUM OXIDE 400 MG TABLET PO SCH (09:00)
[2020-11-03] MEDS: FAMOTIDINE 20 MG TABLET PO SCH ×2 (09:07→21:56)
[2020-11-03] MEDS: ENOXAPARIN 40 MG/0.4 ML SYRINGE SUBQ SCH (09:07)
[2020-11-03] MEDS: NICOTINE 14 MG PATCH TOP SCH (09:08)
[2020-11-03] MEDS: cefTRIAXone 1 GM in SODIUM CHLORIDE 0.9% MINIBAG 100 ML IV SCH (09:09)
[2020-11-03] MEDS: INSULIN ASPART 300 UNIT/3 ML PEN SUBQ SCH ×4 (09:12→22:05)
--- NOTE | 2020-11-03 13:40 | MRI Report ---
PROCEDURE: Brain W/WO INDICATIONS: lesion CONTRAST: IV CONTRAST: Gadavist ml: 6 TECHNIQUE: Noncontrast axial T1 spin echo, axial T2 fast spin echo, sagittal and axial FLAIR, coronal T2 fast sp in echo, axial gradient echo, axial diffusion and ADC through the brain. After the administration of contrast, axial and coronal T1 spin echo with fat saturation through the brain. COMPARISON: CT head without contrast, 11/01/2020. FINDINGS: Image quality: Excellent. CSF spaces: Basal cisterns are patent. No extra-axial fluid collections. Ventricles are normal in size and shape. Brain: There is a 3.5 x 2.6 cm cystic mass in the left frontal lobe demonstrating mild thick walled and a small hemorrhagic component in the dependent area. There is no definitive mural enhancement alt giuliano contrast enhanced images are suboptimal due to motion artifacts. There is mild mass effect to a djacent brain parenchyma. T2 hyperintensity surrounding the mass is consistent with vasogenic edema a nd/or gliosis. No midline shift. There is cerebral volume loss for age. There is mild periventricul ar white matter chronic small vessel ischemic change. The brainstem appears normal. Diffusion-weigh [place] images demonstrate no acute ischemic insults. Normal intravascular flow voids are present. Skull and face: Calvarial marrow is normal in signal. Orbits appear normal. Sinuses: Sinuses and mastoids appear clear. IMPRESSION: 1. A 3.5 x 2.6 cm cystic mass in the left frontal lobe with mildly thick wall and small hemorrhagic c omponent. Mass effect is present with surrounding echogenic edema and/or gliosis. Postcontrast images are suboptimal due to motion artifacts. No midline shift. Differential diagnosis for the mass includ e hematoma, abscess, parasitic cyst and cystic neoplasm. Recommend comparison to prior examinations, if available. Follow-up imaging is suggested. Neurosurgical consultation is recommended. Reviewed by: Kurtis Vergara MD on 11/03/2020 1:39 PM PST Approved by: Kurtis Vergara MD on 11/03/2020 1:39 PM PST Station ID: [id number]
--- NOTE | 2020-11-03 15:33 | PROVIDER PROGRESS NOTE ---
Subjective - Prog Note Date Prog Note Date: 11/03/20 - Subjective Pt reports feeling: Worse Subjective: Patient is more alert today, But she has difficult to speak And still has some confused. I called patient's son Apollo at [phone] report all image study results Including chest x-ray, CT of the chest, CT and MRI of the brain, basically images study show Multiple large tumor in bilaterally of the patient's lung special left side has more tumor than right side, high suggestive Primary or metastatic pulmonary malignant process, Liver metastases, Large cystic mass in left frontal loop of brain which suggested neurosurgical consultation. Apollo will discuss with his family and they will call back their decision, Let us know the decision for further management for pt. pt's UA culture and Sensitivity study is still pending. Current Medications - Current Medications Current Medications: Active Medications Acetaminophen (Acetaminophen 325 Mg Tablet) 650 mg PO Q4HR PRN PRN Reason: Pain or Fever > 38C (100.4F) Albuterol (Albuterol Neb 2.5 Mg/3 Ml) 2.5 mg INH RTQ4H PRN PRN Reason: Wheezing Albuterol/Ipratropium (Ipratropium/Albuterol 3 Ml Neb) 3 ml INH RTQID PRN PRN Reason: Shortness of Air/Wheezing Enoxaparin Sodium (Enoxaparin 40 Mg/0.4 Ml Syringe) 40 mg SUBQ DAILY [facility] Last Admin: 11/03/20 09:07 Dose: 40 mg Documented by: Famotidine (Famotidine 20 Mg Tablet) 20 mg PO BID [facility] Last Admin: 11/03/20 09:07 Dose: 20 mg Documented by: Glycopyrrolate (Glycopyrrolate 1 Mg/5 Ml Vial) 0.2 mg SUBQ Q4HR PRN PRN Reason: EXCESSIVE SECRETIONS Ceftriaxone Sodium 1 gm/ (Sodium Chloride) 100 mls @ 200 mls/hr IV DAILY [facility] Stop: 11/07/20 09:29 Last Infusion: 11/03/20 09:42 Dose: Infused Documented by: Potassium Chloride/Dextrose/Sod Cl () 1,000 mls @ 75 mls/hr IV .[id number] [facility] Last Infusion: 11/03/20 13:22 Dose: 75 mls/hr Documented by: Insulin Aspart (Insulin Aspart 300 Unit/3 Ml Pen) 1 - 5 unit SUBQ 0800,1200,1700,2100 [facility]; Protocol Last Admin: 11/03/20 13:27 Dose: 3 unit Documented by: Magnesium Oxide (Magnesium Oxide 400 Mg Tablet) 400 mg PO DAILYWM [facility] Last Admin: 11/03/20 09:07 Dose: 400 mg Documented by: Nicotine (Nicotine 14 Mg Patch) 1 patch TOP DAILY [facility] Last Admin: 11/03/20 09:08 Dose: 1 patch Documented by: Ondansetron HCl (Ondansetron 4 Mg/2 Ml Vial) 4 mg IVP Q6HR PRN PRN Reason: Nausea / Vomiting Last Admin: 11/02/20 21:12 Dose: 4 mg Documented by: Sodium Chloride (Sodium Chloride Flush 0.9% 10 Ml Syringe) 10 ml IVP PRN PRN PRN Reason: NEEDED PER PROVIDER ORDERS Sodium Chloride (Sodium Chloride Flush 0.9% 10 Ml Syringe) 10 ml IVP 0100,0900,1700 [facility] Last Admin: 11/03/20 09:11 Dose: Not Given Documented by: No Known Home Medications 11/02/20 Objective - Vital Signs/Intake & Output Vital Signs: Vital Signs x48h Temp Pulse Pulse Resp BP Pulse Ox 11/03/20 08:50 75 22 11/03/20 08:00 36.3 C L 72 20 120/50 L 96 Intake & Output: Intake & Output 10/31/20 11/01/20 11/02/20 11/03/20 23:59 23:59 23:59 23:59 Intake Total 1100 2628.333 2016.667 Output Total 1000 150 Balance 1100 3238.728 9353.667 - Objective General Appearance: positive: Alert, Mild distress Eyes Bilateral: positive: Normal inspection, PERRL ENT: positive: ENT inspection nml, No signs of dehydration. negative: Purulent nasal drainage Neck: positive: Nml inspection, Trachea midline. negative: Thyromegaly, Tracheal deviation Respiratory: positive: Chest non-tender. negative: Wheezes, Rales Cardiovascular: positive: Regular rate & rhythm, No murmur. negative: Tachycardia, Bradycardia, Systolic murmur, Diastolic murmur Peripheral Pulses: 2+ Radial (R), 2+ Radial (L) Abdomen: positive: Non-tender, Nml bowel sounds, No distention. negative: Tenderness, Guarding, Rebound Back: positive: Nml inspection Skin: positive: Color nml, Warm, Dry. negative: Cyanosis, Diaphoresis, Pallor Extremities: positive: Non-tender. negative: Calf tenderness Neurologic/Psychiatric: positive: Sensation nml. negative: Sensory loss, Facial droop, Slurred/abnml speech - Lab Results Fish Bones: 11/03/20 04:46 11/03/20 04:46 Other Labs: Lab Results x24hrs 11/03/20 11/03/20 11/01/20 Range/Units 04:46 04:46 22:17 WBC 3.7 L (4.8-10.8) x10^3/uL RBC 3.30 L (4.20-5.40) 10^6/uL Hgb 9.9 L (12.0-16.0) g/dL Hct 30.3 L (37.0-47.0) % MCV 91.8 (81.0-99.0) fL MCH 30.0 (27.0-31.0) pg MCHC 32.7 (32.0-36.0) g/dL RDW 12.8 (12.0-15.0) % Plt Count 156 (130-450) 10^3/uL MPV 11.4 H (7.9-10.8) fL Neut # (Auto) 2.9 (1.5-6.6) 10^3/uL Lymph # (Auto) 0.5 L (1.5-3.5) 10^3/uL [place] # (Auto) 0.3 (0.0-1.0) 10^3/uL Eos # (Auto) 0.0 (0.0-0.7) 10^3/uL Baso # (Auto) 0.0 (0.0-0.1) 10^3/uL Absolute Nucleated RBC 0.00 x10^3/uL Nucleated RBC % 0.0 /100WBC Sodium 134 L (135-145) mmol/L Potassium 3.2 L (3.5-5.0) mmol/L Chloride 103 (101-111) mmol/L Carbon Dioxide 24 (21-32) mmol/L Anion Gap 7.0 (6-13) BUN 5 L (6-20) mg/dL Creatinine 0.5 (0.4-1.0) mg/dL Estimated GFR (MDRD) 120 (>89) Glucose 208 H (70-100) mg/dL Calcium 8.1 L (8.5-10.3) mg/dL Phosphorus 2.7 (2.5-4.6) mg/dL Magnesium 1.5 L (1.7-2.8) mg/dL Urine Opiates Screen NEGATIVE (NEGATIVE) Ur Oxycodone Screen NEGATIVE (NEGATIVE) Urine Methadone Screen NEGATIVE (NEGATIVE) Ur Propoxyphene Screen NEGATIVE (NEGATIVE) Ur Barbiturates Screen NEGATIVE (NEGATIVE) Ur Tricyclics Screen NEGATIVE (NEGATIVE) Ur Phencyclidine Scrn NEGATIVE (NEGATIVE) Ur Amphetamine Screen NEGATIVE (NEGATIVE) U Methamphetamines Scrn NEGATIVE (NEGATIVE) U Benzodiazepines Scrn NEGATIVE (NEGATIVE) Urine Cocaine Screen NEGATIVE (NEGATIVE) U Cannabinoids Screen NEGATIVE (NEGATIVE) ABX Reporting Has patient been on IV antibiotics over the past 48 hours?: Yes Assessment/Plan - Problem List (1) Altered mental status Impression: 11/03 Patient still present some confused but more alert, She tried to speak but could not speak out. MRI of brain show large cystic mass in the left frontal lobe. We will closely monitor patient if pt has any seizure, neuro Check fo rthe patient, Patient still present altered mental status, Restless and some agitation. CT of the head show no acute ischemia or hemorrhage But show left frontal likely cystic lesion 3.2 cm, CAT scan of the chest show bilaterally multiple large lung masses, highly suggestion pulmonary malignancy, and liver Metastasis. We will continue neuro Check and monitor whether patient has seizure activity. We will discuss with the patient family for further care plan (2) UTI (urinary tract infection) Impression: 11/03, Urine culture show positive E. coli, sensitive study is pending, Continue treated with Rocephin UA culture show growing gram negative rods, We will continue treated with antibiotics Rocephin (3) Pulmonary malignant neoplasm Impression: 11/03 Discussed all patient image study results with the patient's son Apollo, Patient family will call us back, Let us know the decision for further management for pt CAT scan of the chest show patient had multiple bilaterally large lung masses With mediastinal and hilar lymphadenopathy, highly suggestive Primary or me tastatic pulmonary malignancy process. Patient has a long history and still cigarette smoker. We will discuss with family for next care plan, Now patient had 97% sats on room air. (4) Liver metastasis Impression: CAT scan also suggestion liver metastasis. Now liver enzyme is in the normal range. We discussed family for further Care plan (6) Fall at home Impression: Patient had a fall in the home, CK is in normal range, creatinine in the normal range. We will continue for fall precaution, We discussed with family for further care plan and to continue physical therapist right now (7) Diabetes mellitus Impression: 11/03,Patient had a slight elevated glucose in the morning, Add Lantus in the evening 5 unit Patient had a slightly elevated glucose, A1c 6.5, we will start with sliding scale, check her sugar and hypoglycemia protocol (8) Hypomagnesemia Impression: Patient had magnesium 1.3, we will replace magnesium and recheck Qualifiers: Altered mental status type: delirium Qualified Code(s): R41.0 - Disorientation, unspecified (2) UTI (urinary tract infection) Qualifiers: Urinary tract infection type: acute cystitis Hematuria presence: with hematuria Qualified Code(s): N30.01 - Acute cystitis with hematuria
[2020-11-03] MEDS: ONDANSETRON 4 MG/2 ML VIAL IVP PRN (19:44)
[2020-11-03] MEDS ORDERED: INSULIN GLARGINE 300 UNIT/3 ML PEN SUBQ SCH (21:00)
[2020-11-03] MEDS ORDERED: D5NS W/20 MEQ KCL 1,000 ML IV SCH (21:46)
[2020-11-03] MEDS ORDERED: levETIRAcetam INJ 1,000 MG in SODIUM CHLORIDE 0.9% 100ML 100 ML IV STA (21:53)
[2020-11-03] MEDS ORDERED: DEXAMETHASONE 10 MG/ML VIAL IVP ONE (21:54)
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
[2020-11-04] MEDS ORDERED: LOPERAMIDE 2 MG CAPSULE PO PRN (00:51)
[2020-11-04] MEDS ORDERED: ATROPINE 1% OPHTH DROPS 2 ML SL PRN (00:51)
[2020-11-04] MEDS ORDERED: LORazepam 2 MG/ML VIAL IVP PRN (00:51)
[2020-11-04] MEDS ORDERED: MORPHINE SOL 10 MG/0.5 ML ORAL SYRINGE SL PRN ×2 (00:51→00:55)
[2020-11-04] MEDS ORDERED: ONDANSETRON ODT 4 MG TABLET TL PRN (00:51)
[2020-11-04] MEDS ORDERED: ACETAMINOPHEN 160 MG/5 ML SUSP UDC PO PRN (00:51)
[2020-11-04] MEDS ORDERED: CARBOXYMETHYLCELLULOSE OPHTH DROPS EACHEYE PRN (00:51)
[2020-11-04] MEDS: SCOPOLAMINE PATCH TOP SCH (02:04)
[2020-11-04] MEDS: ONDANSETRON 4 MG/2 ML VIAL IVP PRN (02:05)
[2020-11-04] MEDS: SODIUM CHLORIDE FLUSH 0.9% 10 ML SYRINGE IVP SCH ×3 (03:21→18:27)
[2020-11-04] MEDS: NICOTINE 14 MG PATCH TOP SCH (09:03)
[2020-11-04] MEDS: cefTRIAXone 1 GM in SODIUM CHLORIDE 0.9% MINIBAG 100 ML IV SCH (10:20)
--- NOTE | 2020-11-04 22:22 | PROVIDER PROGRESS NOTE ---
Assessment/Plan - Problem List (1) Seizures Assessment/Plan: There have been no further seizures ever since the Keppra loading dose. We will start oral p.o. Keppra (2) Lesion of brain Assessment/Plan: The MRI done yesterday showed the brain mass, surrounding hemorrhage and surrounding edema. It may be the reason for being nonverbal and very likely the cause of the seizures and the fall at home. Lovenox was stopped. She has improved by receiving IV Decadron and a Keppra loading dose. The son visited her today. She is now in comfort care orders. Hospice has also been ordered to see her as she may last this way for weeks (3) Altered mental status Qualifiers: Altered mental status type: disorientation Qualified Code(s): R41.0 - Disorientation, unspecified Assessment/Plan: She continues to be nonverbal but did tell a [employer] no once in yes months. She nods her head and shakes to give an answer. (4) Pulmonary malignant neoplasm Assessment/Plan: She has several masses on lung imaging, with mets to the liver, adrenal gland and brain. Prognosis is poor. No more labs are being ordered, as she is on Comfort measures. Hospice Consult has been ordered (5) UTI (urinary tract infection) Assessment/Plan: She completed a 3-day course of IV antibiotics, this is now stopped (6) Bronchitis Assessment/Plan: She is able to clear her secretions now that she is alert, unlike yesterday when she was somnolent between seizures. She does not have the capacity to follow directions to use an inhaler (7) Tobacco use Assessment/Plan: She has the physique of somebody with COPD. She is getting a nicotine patch topically while here - Current Meds Current Meds: Current Medications Generic Name Dose Route Start Last Admin Trade Name Freq PRN Reason Stop Dose Admin Morphine Sulfate 10 mg 11/04/20 00:55 11/04/20 18:39 Morphine Robina 10 Mg/0.5 Ml Oral Syringe SL 10 mg Q2HR PRN Administration Dyspnea Nicotine 1 patch 11/02/20 12:00 11/04/20 09:03 Nicotine 14 Mg Patch TOP 1 patch DAILY [facility]IN Administration Ondansetron HCl 4 mg 11/01/20 23:28 11/04/20 02:05 Ondansetron 4 Mg/2 Ml Vial IVP 4 mg Q6HR PRN Administration Nausea / Vomiting Scopolamine HBr 1 patch 11/04/20 01:00 11/04/20 02:04 Scopolamine Patch TOP 1 patch Q3D PRAVIN Administration Sodium Chloride 10 ml 11/02/20 01:00 11/04/20 18:27 Sodium Chloride Flush 0.9% 10 Ml Syringe IVP 10 ml 0100,0900,1700 PR[facility] Administration - Lab Result Fish Bone Diagrams: 11/03/20 04:46 11/03/20 04:46 - Additional Planning My Orders: My Active Orders 11/03/20 22:38 HEPATITIS B SURFACE AG W CONF [REFLAB] Stat HEPATITIS C AB RFLX RNA QN [REFLAB] Stat HIV AB/AG 4TH GEN W/REFLEX [REFLAB] Stat 11/04/20 00:51 Comfort Care [RC] QSHIFT Cooling Unit [RC] PRN Oral Care - Nursing [RC] BID Turn and Reposition [RC] PRN Warming Unit [RC] PRN Acetaminophen [Tylenol] 640 mg PO Q4H PRN Atropine 1% Ophth Drops [Isopto Atropine 1% Ophth Drops] 1 - 4 drops SL Q2H PRN Carboxymethylcellulose 1% Opht [Refresh 1% Ophth Drops] 1 drops EACHEYE QID PRN LORazepam INJ [Ativan Inj (Vial)] 1 mg IVP Q6H PRN Loperamide [Imodium] 2 mg PO Q2H PRN Ondansetron Odt [Zofran Odt] 4 mg TL Q8H PRN 11/04/20 00:55 Morphine Oral Soln [Roxanol] 10 mg SL Q2HR PRN 11/04/20 01:00 Scopolamine Patch [Transderm-Scop] 1 patch TOP Q3D Subjective - Subjective Patient Reports: Feeling Better, Other (Not communicative with me but is much more alert than yesterday. Able to shake her head no when asked if she is hungry. The [employer] stated that she ate good portion of her diet.) Objective Vital Signs: Vital Signs - 24 hr 11/03/20 11/04/20 11/04/20 22:50 00:31 08:27 Temperature 36.2 C L 36.2 C L Heart Rate [ 69 66 59 L Brachial] Respiratory 19 18 Rate Blood Pressure 157/68 H 168/65 H 139/56 H [Right Brachial artery] O2 Saturation 98 95 97 Oxygen O2 Source Room air I&O (Last 24 Hrs): Intake and Output Totals x24h 11/02/20 11/03/20 11/04/20 23:59 23:59 23:59 Intake Total 2628.333 2981.667 1251 Output Total 1000 450 425 Balance 3873.041 8576.667 826 General: Alert, No acute distress HEENT: Atraumatic, Other (Poor dentition) Neck: Supple Neuro: Alert, Disoriented, Other (Not communicative, but shakes her head appropriately for yes and no answers. Moves all extremities spontaneous) Cardiovascular: Regular rate Respiratory: No respiratory distress, Breath sounds nml Abdomen: Soft Extremities: No edema, No tenderness/swelling, Other (Tips of fingers are excori ated) - Results Results: Laboratory Results WBC 3.7 x10^3/uL (4.8-10.8) L 11/03/20 04:46 RBC 3.30 10^6/uL (4.20-5.40) L 11/03/20 04:46 Hgb 9.9 g/dL (12.0-16.0) L 11/03/20 04:46 Hct 30.3 % (37.0-47.0) L 11/03/20 04:46 MCV 91.8 fL (81.0-99.0) 11/03/20 04:46 MCH 30.0 pg (27.0-31.0) 11/03/20 04:46 MCHC 32.7 g/dL (32.0-36.0) 11/03/20 04:46 RDW 12.8 % (12.0-15.0) 11/03/20 04:46 Plt Count 156 10^3/uL (130-450) 11/03/20 04:46 MPV 11.4 fL (7.9-10.8) H 11/03/20 04:46 Neut # (Auto) 2.9 10^3/uL (1.5-6.6) 11/03/20 04:46 Lymph # (Auto) 0.5 10^3/uL (1.5-3.5) L 11/03/20 04:46 [place] # (Auto) 0.3 10^3/uL (0.0-1.0) 11/03/20 04:46 Eos # (Auto) 0.0 10^3/uL (0.0-0.7) 11/03/20 04:46 Baso # (Auto) 0.0 10^3/uL (0.0-0.1) 11/03/20 04:46 Absolute Nucleated RBC 0.00 x10^3/uL 11/03/20 04:46 Nucleated RBC % 0.0 /100WBC 11/03/20 04:46 Sodium 134 mmol/L (135-145) L 11/03/20 04:46 Potassium 3.2 mmol/L (3.5-5.0) L 11/03/20 04:46 Chloride 103 mmol/L (101-111) 11/03/20 04:46 Carbon Dioxide 24 mmol/L (21-32) 11/03/20 04:46 Anion Gap 7.0 (6-13) 11/03/20 04:46 BUN 5 mg/dL (6-20) L 11/03/20 04:46 Creatinine 0.5 mg/dL (0.4-1.0) 11/03/20 04:46 Estimated GFR (MDRD) 120 (>89) 11/03/20 04:46 Glucose 208 mg/dL (70-100) H 11/03/20 04:46 Estimat Average Glucose 140 mg/dL (70-100) H 11/02/20 04:40 Hemoglobin A1c % 6.5 % (4.27-6.07) H 11/02/20 04:40 Lactic Acid 2.1 mmol/L (0.5-2.2) 11/01/20 23:43 Calcium 8.1 mg/dL (8.5-10.3) L 11/03/20 04:46 Phosphorus 2.7 mg/dL (2.5-4.6) 11/03/20 04:46 Magnesium 1.5 mg/dL (1.7-2.8) L 11/03/20 04:46 Total Bilirubin 0.7 mg/dL (0.2-1.0) 11/01/20 20:42 AST 28 IU/L (10-42) 11/01/20 20:42 ALT 20 IU/L (10-60) 11/01/20 20:42 Alkaline Phosphatase 60 IU/L (42-121) 11/01/20 20:42 Ammonia 11.0 umol/L (7-35) 11/01/20 21:14 Total Creatine Kinase 199 IU/L (22-269) 11/01/20 20:42 Total Protein 7.5 g/dL (6.7-8.2) 11/01/20 20:42 Albumin 3.6 g/dL (3.2-5.5) 11/01/20 20:42 Globulin 3.9 g/dL (2.1-4.2) 11/01/20 20:42 Albumin/Globulin Ratio 0.9 (1.0-2.2) L 11/01/20 20:42 TSH 1.52 uIU/mL (0.34-5.60) 11/01/20 04:40 Urine Color YELLOW 11/01/20 22:17 Urine Clarity HAZY (CLEAR) 11/01/20 22:17 Urine pH 5.5 PH (5.0-7.5) 11/01/20 22:17 Ur Specific [place] 1.020 (1.002-1.030) 11/01/20 22:17 Urine Protein 30 mg/dL (NEGATIVE) H 11/01/20 22:17 Urine Glucose (UA) NEGATIVE mg/dL (NEGATIVE) 11/01/20 22:17 Urine Ketones TRACE mg/dL (NEGATIVE) 11/01/20 22:17 Urine Occult Blood MODERATE (NEGATIVE) H 11/01/20 22:17 Urine Nitrite POSITIVE (NEGATIVE) H 11/01/20 22:17 Urine Bilirubin NEGATIVE (NEGATIVE) 11/01/20 22:17 Urine Urobilinogen 0.2 (NORMAL) E.U./dL (NORMAL) 11/01/20 22:17 Ur Leukocyte Esterase NEGATIVE (NEGATIVE) 11/01/20 22:17 Urine RBC 6-10 /HPF (0-5) H 11/01/20 22:17 Urine WBC 0-3 /HPF (0-5) 11/01/20 22:17 Ur Squamous Epith Cells FEW Squamous (<= Few) 11/01/20 22:17 Urine Bacteria Many /HPF (None Seen) H 11/01/20 22:17 Urine Casts 0-2 Course Granular /LPF 11/01/20 22:17 Ur Microscopic Review INDICATED 11/01/20 22:17 Urine Culture Comments INDICATED 11/01/20 22:17 Nasal Adenovirus (PCR) NOT DETECTED 11/01/20 21:56 Nasal B. parapertussis DNA (PCR) NOT DETECTED 11/01/20 21:56 Nasal Coronavir 229E PCR NOT DETECTED 11/01/20 21:56 Nasal Coronavir HKU1 PCR NOT DETECTED 11/01/20 21:56 Nasal Coronavir NL63 PCR NOT DETECTED 11/01/20 21:56 Nasal Coronavir OC43 PCR NOT DETECTED 11/01/20 21:56 Nasal Enterovir/Rhinovir PCR NOT DETECTED 11/01/20 21:56 Nasal Influenza B PCR NOT DETECTED 11/01/20 21:56 Nasal Influenza A PCR NOT DETECTED 11/01/20 21:56 Nasal Parainfluen 1 PCR NOT DETECTED 11/01/20 21:56 Nasal Parainfluen 2 PCR NOT DETECTED 11/01/20 21:56 Nasal Parainfluen 3 PCR NOT DETECTED 11/01/20 21:56 Nasal Parainfluen 4 PCR NOT DETECTED 11/01/20 21:56 Nasal RSV (PCR) NOT DETECTED 11/01/20 21:56 Nasal B.pertussis DNA PCR NOT DETECTED 11/01/20 21:56 Nasal C.pneumoniae (PCR) NOT DETECTED 11/01/20 21:56 Sb Human Metapneumo PCR NOT DETECTED 11/01/20 21:56 Nasal M.pneumoniae (PCR) NOT DETECTED 11/01/20 21:56 Nasal SARS-CoV-2 (PCR) NOT DETECTED 11/01/20 21:56 Urine Opiates Screen NEGATIVE (NEGATIVE) 11/01/20 22:17 Ur Oxycodone Screen NEGATIVE (NEGATIVE) 11/01/20 22:17 Urine Methadone Screen NEGATIVE (NEGATIVE) 11/01/20 22:17 Ur Propoxyphene Screen NEGATIVE (NEGATIVE) 11/01/20 22:17 Ur Barbiturates Screen NEGATIVE (NEGATIVE) 11/01/20 22:17 Ur Tricyclics Screen NEGATIVE (NEGATIVE) 11/01/20 22:17 Ur Phencyclidine Scrn NEGATIVE (NEGATIVE) 11/01/20 22:17 Ur Amphetamine Screen NEGATIVE (NEGATIVE) 11/01/20 22:17 U Methamphetamines Scrn NEGATIVE (NEGATIVE) 11/01/20 22:17 U Benzodiazepines Scrn NEGATIVE (NEGATIVE) 11/01/20 22:17 Urine Cocaine Screen NEGATIVE (NEGATIVE) 11/01/20 22:17 U Cannabinoids Screen NEGATIVE (NEGATIVE) 11/01/20 22:17 Ethyl Alcohol < 5.0 mg/dL 11/02/20 08:38 HIV 1&2 Antibody Rapid NEGATIVE (NEGATIVE) 11/03/20 22:38
[2020-11-05] MEDS: levETIRAcetam 250 MG TABLET PO SCH ×2 (01:11→08:39)
[2020-11-05] MEDS: SODIUM CHLORIDE FLUSH 0.9% 10 ML SYRINGE IVP SCH ×3 (01:13→16:17)
[2020-11-05] MEDS: NICOTINE 14 MG PATCH TOP SCH (08:36)
[2020-11-05] MEDS: levETIRAcetam 500 MG/5 ML UDC PO SCH (22:04)
--- NOTE | 2020-11-05 22:34 | PROVIDER PROGRESS NOTE ---
Assessment/Plan - Problem List (1) Lesion of brain Assessment/Plan: This is felt to be a metastatic lesion. There is surrounding small amount of hemorrhage as well as brain edema. She got IV Decadron when this was diagnosed and her Lovenox was stopped. She is now getting Comfort Care. I spoke to the son Apollo today and answered questions to his satisfaction. I told him I cannot estimate how much more recovery she will have in neurologic status; the patient was able to speak a full sentence with Apollo's brother who visited the patient here today. I cannot tell if the patient will be able to stand or pivot or walk or feed herself. She currently is deconditioned from being in bed many days. The terminal operator plan however is Hospice for end-of-life care and social work was able to speak to Apollo and tell him that Hospice can accept the patient on Friday (today Friday). (2) Comfort measures only status Assessment/Plan: As above. She gets blood pressure checked once a day only. She is not on telemetry. She is not getting SCDs. There are no more blood draws ordered. A Reese is in place. Meds are ordered as needed for various symptoms, for her comfort. (3) Seizures Assessment/Plan: 2 days ago she had seizures approximately every 15 minutes that lasted 20 seconds and she was lethargic in between but not entirely postictal, she could not handle her secretions on that day. She got IV Keppra loaded IV that day and now is on Keppra be p.o. twice daily. She is more awakeyesterday and today, she is eating and drinking and today was able to communicate more. Will continue po Keppra empiricallly. (4) Altered mental status Qualifiers: Altered mental status type: disorientation Qualified Code(s): R41.0 - Disorientation, unspecified Assessment/Plan: As above. (5) Pulmonary malignant neoplasm Assessment/Plan: Work-up during this hospitalization showed multiple lung masses which are new findings. This is considered to be malignant and probably her primary focus. (6) UTI (urinary tract infection) Assessment/Plan: She was starting to get IV antibiotics empirically since the new altered mental status was felt to be from bacteriuria. She got 3 days of IV ceftriaxone and it has now been stopped (7) Bronchitis Assessment/Plan: She was unable to clear her secretions on the day that she was somnolent with frequent seizures. She is now comfortable, getting appropriate meds in the comfort care package. (8) Tobacco use Assessment/Plan: Nicotine patch topically is ordered. - Current Meds Current Meds: Current Medications Generic Name Dose Route Start Last Admin Trade Name Freq PRN Reason Stop Dose Admin Levetiracetam 500 mg 11/05/20 21:00 11/05/20 22:04 Levetiracetam 500 Mg/5 Ml Udc PO 500 mg BID PRAVIN Administration Morphine Sulfate 10 mg 11/04/20 00:55 11/04/20 18:39 Morphine Robina 10 Mg/0.5 Ml Oral Syringe SL 10 mg Q2HR PRN Administration Dyspnea Nicotine 1 patch 11/02/20 12:00 11/05/20 08:36 Nicotine 14 Mg Patch TOP 1 patch DAILY PRAVIN Administration Ondansetron HCl 4 mg 11/01/20 23:28 11/04/20 02:05 Ondansetron 4 Mg/2 Ml Vial IVP 4 mg Q6HR PRN Administration Nausea / Vomiting Scopolamine HBr 1 patch 11/04/20 01:00 11/04/20 02:04 Scopolamine Patch TOP 1 patch Q3D PRAVIN Administration Sodium Chloride 10 ml 11/02/20 01:00 11/05/20 16:17 Sodium Chloride Flush 0.9% 10 Ml Syringe IVP Not Given 0100,0900,1700 PRAVIN - Lab Result Fish Bone Diagrams: 11/03/20 04:46 11/03/20 04:46 Subjective - Subjective Patient Reports: Resting Comfortably, Other (Sleeping) Objective Vital Signs: Vital Signs - 24 hr 11/05/20 08:36 Temperature 37.0 C Heart Rate [ 72 Radial] Respiratory 18 Rate Blood Pressure 117/58 L [Right Brachial artery] O2 Saturation 94 Oxygen O2 Source Room air I&O (Last 24 Hrs): Intake and Output Totals x24h 11/03/20 11/04/20 11/05/20 23:59 23:59 23:59 Intake Total 2981.667 1351 540 Output Total 450 425 100 Balance 2531.667 926 440 General: Other (Asleep) HEENT: Mucous membr. moist/pink Neck: Supple Neuro: Alert Cardiovascular: Regular rate Respiratory: No respiratory distress Abdomen: Soft Extremities: No edema - Results Results: Laboratory Results WBC 3.7 x10^3/uL (4.8-10.8) L 11/03/20 04:46 RBC 3.30 10^6/uL (4.20-5.40) L 11/03/20 04:46 Hgb 9.9 g/dL (12.0-16.0) L 11/03/20 04:46 Hct 30.3 % (37.0-47.0) L 11/03/20 04:46 MCV 91.8 fL (81.0-99.0) 11/03/20 04:46 MCH 30.0 pg (27.0-31.0) 11/03/20 04:46 MCHC 32.7 g/dL (32.0-36.0) 11/03/20 04:46 RDW 12.8 % (12.0-15.0) 11/03/20 04:46 Plt Count 156 10^3/uL (130-450) 11/03/20 04:46 MPV 11.4 fL (7.9-10.8) H 11/03/20 04:46 Neut # (Auto) 2.9 10^3/uL (1.5-6.6) 11/03/20 04:46 Lymph # (Auto) 0.5 10^3/uL (1.5-3.5) L 11/03/20 04:46 Hettinger # (Auto) 0.3 10^3/uL (0.0-1.0) 11/03/20 04:46 Eos # (Auto) 0.0 10^3/uL (0.0-0.7) 11/03/20 04:46 Baso # (Auto) 0.0 10^3/uL (0.0-0.1) 11/03/20 04:46 Absolute Nucleated RBC 0.00 x10^3/uL 11/03/20 04:46 Nucleated RBC % 0.0 /100WBC 11/03/20 04:46 Sodium 134 mmol/L (135-145) L 11/03/20 04:46 Potassium 3.2 mmol/L (3.5-5.0) L 11/03/20 04:46 Chloride 103 mmol/L (101-111) 11/03/20 04:46 Carbon Dioxide 24 mmol/L (21-32) 11/03/20 04:46 Anion Gap 7.0 (6-13) 11/03/20 04:46 BUN 5 mg/dL (6-20) L 11/03/20 04:46 Creatinine 0.5 mg/dL (0.4-1.0) 11/03/20 04:46 Estimated GFR (MDRD) 120 (>89) 11/03/20 04:46 Glucose 208 mg/dL (70-100) H 11/03/20 04:46 Estimat Average Glucose 140 mg/dL (70-100) H 11/02/20 04:40 Hemoglobin A1c % 6.5 % (4.27-6.07) H 11/02/20 04:40 Lactic Acid 2.1 mmol/L (0.5-2.2) 11/01/20 23:43 Calcium 8.1 mg/dL (8.5-10.3) L 11/03/20 04:46 Phosphorus 2.7 mg/dL (2.5-4.6) 11/03/20 04:46 Magnesium 1.5 mg/dL (1.7-2.8) L 11/03/20 04:46 Total Bilirubin 0.7 mg/dL (0.2-1.0) 11/01/20 20:42 AST 28 IU/L (10-42) 11/01/20 20:42 ALT 20 IU/L (10-60) 11/01/20 20:42 Alkaline Phosphatase 60 IU/L (42-121) 11/01/20 20:42 Ammonia 11.0 umol/L (7-35) 11/01/20 21:14 Total Creatine Kinase 199 IU/L (22-269) 11/01/20 20:42 Total Protein 7.5 g/dL (6.7-8.2) 11/01/20 20:42 Albumin 3.6 g/dL (3.2-5.5) 11/01/20 20:42 Globulin 3.9 g/dL (2.1-4.2) 11/01/20 20:42 Albumin/Globulin Ratio 0.9 (1.0-2.2) L 11/01/20 20:42 TSH 1.52 uIU/mL (0.34-5.60) 11/01/20 04:40 Urine Color YELLOW 11/01/20 22:17 Urine Clarity HAZY (CLEAR) 11/01/20 22:17 Urine pH 5.5 PH (5.0-7.5) 11/01/20 22:17 Ur Specific Posey 1.020 (1.002-1.030) 11/01/20 22:17 Urine Protein 30 mg/dL (NEGATIVE) H 11/01/20 22:17 Urine Glucose (UA) NEGATIVE mg/dL (NEGATIVE) 11/01/20 22:17 Urine Ketones TRACE mg/dL (NEGATIVE) 11/01/20 22:17 Urine Occult Blood MODERATE (NEGATIVE) H 11/01/20 22:17 Urine Nitrite POSITIVE (NEGATIVE) H 11/01/20 22:17 Urine Bilirubin NEGATIVE (NEGATIVE) 11/01/20 22:17 Urine Urobilinogen 0.2 (NORMAL) E.U./dL (NORMAL) 11/01/20 22:17 Ur Leukocyte Esterase NEGATIVE (NEGATIVE) 11/01/20 22:17 Urine RBC 6-10 /HPF (0-5) H 11/01/20 22:17 Urine WBC 0-3 /HPF (0-5) 11/01/20 22:17 Ur Squamous Epith Cells FEW Squamous (<= Few) 11/01/20 22:17 Urine Bacteria Many /HPF (None Seen) H 11/01/20 22:17 Urine Casts 0-2 Course Granular /LPF 11/01/20 22:17 Ur Microscopic Review INDICATED 11/01/20 22:17 Urine Culture Comments INDICATED 11/01/20 22:17 Nasal Adenovirus (PCR) NOT DETECTED 11/01/20 21:56 Nasal B. parapertussis DNA (PCR) NOT DETECTED 11/01/20 21:56 Nasal Coronavir 229E PCR NOT DETECTED 11/01/20 21:56 Nasal Coronavir HKU1 PCR NOT DETECTED 11/01/20 21:56 Nasal Coronavir NL63 PCR NOT DETECTED 11/01/20 21:56 Nasal Coronavir OC43 PCR NOT DETECTED 11/01/20 21:56 Nasal Enterovir/Rhinovir PCR NOT DETECTED 11/01/20 21:56 Nasal Influenza B PCR NOT DETECTED 11/01/20 21:56 Nasal Influenza A PCR NOT DETECTED 11/01/20 21:56 Nasal Parainfluen 1 PCR NOT DETECTED 11/01/20 21:56 Nasal Parainfluen 2 PCR NOT DETECTED 11/01/20 21:56 Nasal Parainfluen 3 PCR NOT DETECTED 11/01/20 21:56 Nasal Parainfluen 4 PCR NOT DETECTED 11/01/20 21:56 Nasal RSV (PCR) NOT DETECTED 11/01/20 21:56 Nasal B.pertussis DNA PCR NOT DETECTED 11/01/20 21:56 Nasal C.pneumoniae (PCR) NOT DETECTED 11/01/20 21:56 Sb Human Metapneumo PCR NOT DETECTED 11/01/20 21:56 Nasal M.pneumoniae (PCR) NOT DETECTED 11/01/20 21:56 Nasal SARS-CoV-2 (PCR) NOT DETECTED 11/01/20 21:56 Urine Opiates Screen NEGATIVE (NEGATIVE) 11/01/20 22:17 Ur Oxycodone Screen NEGATIVE (NEGATIVE) 11/01/20 22:17 Urine Methadone Screen NEGATIVE (NEGATIVE) 11/01/20 22:17 Ur Propoxyphene Screen NEGATIVE (NEGATIVE) 11/01/20 22:17 Ur Barbiturates Screen NEGATIVE (NEGATIVE) 11/01/20 22:17 Ur Tricyclics Screen NEGATIVE (NEGATIVE) 11/01/20 22:17 Ur Phencyclidine Scrn NEGATIVE (NEGATIVE) 11/01/20 22:17 Ur Amphetamine Screen NEGATIVE (NEGATIVE) 11/01/20 22:17 U Methamphetamines Scrn NEGATIVE (NEGATIVE) 11/01/20 22:17 U Benzodiazepines Scrn NEGATIVE (NEGATIVE) 11/01/20 22:17 Urine Cocaine Screen NEGATIVE (NEGATIVE) 11/01/20 22:17 U Cannabinoids Screen NEGATIVE (NEGATIVE) 11/01/20 22:17 Ethyl Alcohol < 5.0 mg/dL 11/02/20 08:38 HIV 1&2 Antibody Rapid NEGATIVE (NEGATIVE) 11/03/20 22:38
[2020-11-06] MEDS: SODIUM CHLORIDE FLUSH 0.9% 10 ML SYRINGE IVP SCH ×4 (07:52→23:31)
[2020-11-06] MEDS: NICOTINE 14 MG PATCH TOP SCH (09:59)
[2020-11-06] MEDS: levETIRAcetam 500 MG/5 ML UDC PO SCH ×2 (09:59→20:00)
--- NOTE | 2020-11-06 14:26 | PROVIDER PROGRESS NOTE ---
Subjective - Prog Note Date Prog Note Date: 11/06/20 Prog Note Time: 14:25 - Subjective Subjective: she struggles for words and for sentences. both sons in room and ask about hospice referral and to speak to SW to discuss list for private duty hires. they feel she is bit better w her words today but recognize the struggle. Current Medications - Current Medications Current Medications: Active Medications Acetaminophen (Acetaminophen 160 Mg/5 Ml Susp Udc) 640 mg PO Q4H PRN PRN Reason: Fever >101 Atropine Sulfate (Atropine 1% Ophth Drops 2 Ml) 1 - 4 drops SL Q2H PRN PRN Reason: Excessive secretions Carboxymethylcellulose (Carboxymethylcellulose Ophth Drops) 1 drops EACHEYE QID PRN PRN Reason: Dry Eye Glycopyrrolate (Glycopyrrolate 1 Mg/5 Ml Vial) 0.2 mg SUBQ Q4HR PRN PRN Reason: EXCESSIVE SECRETIONS Levetiracetam (Levetiracetam 500 Mg/5 Ml Udc) 500 mg PO BID [facility] Last Admin: 11/06/20 09:59 Dose: 500 mg Documented by: Loperamide HCl (Loperamide 2 Mg Capsule) 2 mg PO Q2H PRN PRN Reason: Diarrhea Lorazepam (Lorazepam 2 Mg/Ml Vial) 1 mg IVP Q6H PRN PRN Reason: Anxiety/Agitation Morphine Sulfate (Morphine Robina 10 Mg/0.5 Ml Oral Syringe) 10 mg SL Q2HR PRN PRN Reason: Dyspnea Last Admin: 11/04/20 18:39 Dose: 10 mg Documented by: Nicotine (Nicotine 14 Mg Patch) 1 patch TOP DAILY [facility] Last Admin: 11/06/20 09:59 Dose: 1 patch Documented by: Ondansetron HCl (Ondansetron 4 Mg/2 Ml Vial) 4 mg IVP Q6HR PRN PRN Reason: Nausea / Vomiting Last Admin: 11/04/20 02:05 Dose: 4 mg Documented by: Ondansetron HCl (Ondansetron Odt 4 Mg Tablet) 4 mg TL Q8H PRN PRN Reason: Nausea / Vomiting Scopolamine HBr (Scopolamine Patch) 1 patch TOP Q3D [facility] Last Admin: 11/04/20 02:04 Dose: 1 patch Documented by: Sodium Chloride (Sodium Chloride Flush 0.9% 10 Ml Syringe) 10 ml IVP 0100,0900,1700 PRAVIN Last Admin: 11/06/20 10:00 Dose: Not Given Documented by: No Known Home Medications 11/02/20 Objective - Vital Signs/Intake & Output Reviewed Vital Signs: Yes Vital Signs: Vital Signs x48h Temp Pulse Resp BP Pulse Ox 11/06/20 09:06 36.4 C L 80 20 96/44 L 95 Intake & Output: Intake & Output 11/03/20 11/04/20 11/05/20 11/06/20 23:59 23:59 23:59 23:59 Intake Total 2981.667 9266 278 4818 Output Total 450 425 100 450 Balance 2531.667 926 440 930 - Objective General Appearance: positive: No acute distress, Alert, Other (no further zeizures on kera) Eyes Bilateral: positive: PERRL, EOMI ENT: positive: No signs of dehydration Neck: positive: No JVD. negative: Stiff neck Respiratory: positive: No respiratory distress. negative: Wheezes, Rales, Rhonchi Cardiovascular: positive: Regular rate & rhythm. negative: Gallop/S4, Friction rub Abdomen: positive: Non-tender, No organomegaly, Nml bowel sounds, No distention Skin: positive: Warm, Dry, Pallor Extremities: positive: Full ROM, Pedal edema (mild) Neurologic/Psychiatric: positive: CN's nml (2-12), Motor nml, Disoriented to place, Disoriented to time (she recognizes her sons, speech is garbled.), Slurred/abnml speech - Lab Results Fish Bones: 11/03/20 04:46 11/03/20 04:46 ABX Reporting Has patient been on IV antibiotics over the past 48 hours?: Yes Assessment/Plan - Problem List (1) Lesion of brain Impression: Once evaluation was done, MRI has showed her to have brain tumors, most likely metastatic. 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 She got IV Decadron when this was diagnosed and her Lovenox was stopped. She is now getting Comfort Care. Both sons are in the room with her right now. Their plan is to take her home with hospice on Friday. Dr. Ames is requesting a referral but I am puzzled since the order was written on November 04. He plans on seeing her today with the hospice intake nurse. Their concern is that she will need care at home. She is not a safe discharge. At this time the sons work. They plan on hiring private duty aides for during the day. They will then spend the night with her. (2) Comfort measures only status Assessment/Plan: As above. She gets blood pressure checked once a day only. She is not on telemetry. She is not getting SCDs. There are no more blood draws ordered. A Reese is in place. Meds are ordered as needed for various symptoms, for her comfort. (3) Seizures Assessment/Plan: 3 days ago she had seizures approximately every 15 minutes that lasted 20 seconds and she was lethargic in between but not entirely postictal, she could not handle her secretions on that day. She got IV Keppra loaded IV that day and now is on Keppra be p.o. twice daily. She is more awake yesterday and today, she is eating and drinking and today was able to communicate more. Will continue po Keppra empiricallly.Its been equivocal about whether we want to continue the Decadron or not. Since she is responding to the Keppra as a single agent, we will hold off on Decadron.She is not a candidate for palliative radiation at this time (4) Altered mental status Qualifiers: Altered mental status type: disorientation Qualified Code(s): R41.0 - Disorientation, unspecified Assessment/Plan: As above. (5) Pulmonary malignant neoplasm Assessment/Plan: Work-up during this hospitalization showed multiple lung masses which are new fi ndings. This is considered to be malignant and probably her primary focus. (6) UTI (urinary tract infection) Assessment/Plan: She was starting to get IV antibiotics empirically since the new altered mental status was felt to be from bacteriuria. She got 3 days of IV ceftriaxone and it has now been stopped (7) Bronchitis Assessment/Plan: She was unable to clear her secretions on the day that she was somnolent with f requent seizures. She is now comfortable, getting appropriate meds in the comfort care package. (8) Tobacco use Assessment/Plan: Nicotine patch topically is ordered.
[2020-11-07] MEDS: SCOPOLAMINE PATCH TOP SCH (00:33)
[2020-11-07] MEDS: SODIUM CHLORIDE FLUSH 0.9% 10 ML SYRINGE IVP SCH ×3 (09:00→23:23)
[2020-11-07] MEDS: levETIRAcetam 500 MG/5 ML UDC PO SCH ×2 (09:07→21:21)
[2020-11-07] MEDS: NICOTINE 14 MG PATCH TOP SCH (09:07)
[2020-11-07] MEDS: polyethylene glycoL 3350 17 GM PACKET PO SCH (09:07)
--- NOTE | 2020-11-07 12:24 | PROVIDER PROGRESS NOTE ---
Assessment/Plan - Problem List (1) Lesion of brain Assessment/Plan: 11/07 Patient had a large lesion in the left frontal lobe of the brain, it is likely mass/metastatic, but no midline shift effect. Beside pt has pulmonary malignant neoplasm. Patient family agreed to have hospice care, plan DC to home with hospice care on tomorrow. Patient is on Keppra for seizure, We will continue. Shirley today patient's mental status is better than before. Continue comfortable measure only in the hospital (2) Comfort measures only status Assessment/Plan: will continue comfort measure, She gets blood pressure checked once a day only. She is not on telemetry. She is not getting SCDs. There are no more blood draws ordered. A Reese is in place. Meds are ordered as needed for various symptoms, for her comfort purpose. (3) Seizures Patient has no more seizure reported, We will continue Keppra. Continue comfortable care (4) Altered mental status Improved. Patient is alert but she still cannot or difficulty to speak a word out. (5) Pulmonary malignant neoplasm Assessment/Plan: We will continue comfortable caring in hospital and discharge to home with hospice care. Work-up during this hospitalization showed multiple lung masses which are new findings. This is considered to be malignant and probably her primary focus. (6) UTI (urinary tract infection) Assessment/Plan: Continue comfortable care, antibiotics was hold now. She was starting to get IV antibiotics empirically since the new altered mental status was felt to be from bacteriuria. She got 3 days of IV ceftriaxone and it has now been stoppe (7) Tobacco use Assessment/Plan: Nicotine patch topically is ordered. (2) UTI (urinary tract infection) Qualifiers: Urinary tract infection type: acute cystitis Hematuria presence: with hematuria Qualified Code(s): N30.01 - Acute cystitis with hematuria - Current Meds Current Meds: Current Medications Generic Name Dose Route Start Last Admin Trade Name Freq PRN Reason Stop Dose Admin Levetiracetam 500 mg 11/05/20 21:00 11/07/20 09:07 Levetiracetam 500 Mg/5 Ml Udc PO 500 mg BID PRAVIN Administration Morphine Sulfate 10 mg 11/04/20 00:55 11/04/20 18:39 Morphine Robina 10 Mg/0.5 Ml Oral Syringe SL 10 mg Q2HR PRN Administration Dyspnea Nicotine 1 patch 11/02/20 12:00 11/07/20 09:07 Nicotine 14 Mg Patch TOP 1 patch DAILY PRAVIN Administration Ondansetron HCl 4 mg 11/01/20 23:28 11/04/20 02:05 Ondansetron 4 Mg/2 Ml Vial IVP 4 mg Q6HR PRN Administration Nausea / Vomiting Polyethylene Glycol 17 gm 11/07/20 09:00 11/07/20 09:07 Polyethylene Glycol 3350 17 Gm Packet PO 17 gm DAILY PRAVIN Administration Scopolamine HBr 1 patch 11/04/20 01:00 11/07/20 00:33 Scopolamine Patch TOP 1 patch Q3D PRAVIN Administration Sodium Chloride 10 ml 11/02/20 01:00 11/07/20 09:00 Sodium Chloride Flush 0.9% 10 Ml Syringe IVP Not Given 0100,0900,1700 PRAVIN - Lab Result [place] Diagrams: 11/03/20 04:46 11/03/20 04:46 Subjective - Subjective Patient Reports: Resting Comfortably Nursing Reports: No Complaints Objective Vital Signs: Vital Signs - 24 hr 11/06/20 11/07/20 17:15 09:00 Temperature 36.3 C L 36.7 C Heart Rate [ 75 84 Radial] Respiratory 19 16 Rate Blood Pressure 153/71 H 127/101 H [Right Brachial artery] O2 Saturation 99 100 Oxygen O2 Source Room air I&O (Last 24 Hrs): Intake and Output Totals x24h 11/05/20 11/06/20 11/07/20 23:59 23:59 23:59 Intake Total 540 1620 480 Output Total 100 950 Balance 440 670 480 General: Alert, No acute distress HEENT: Atraumatic Neck: Supple Lymphatic: no adenopathy Neuro: Alert Cardiovascular: Regular rate, Normal S1, Normal S2 Respiratory: Chest non-tender, No respiratory distress Abdomen: Normal bowel sounds, Soft, No tenderness Extremities: Normal pulses - Results Results: Laboratory Results WBC 3.7 x10^3/uL (4.8-10.8) L 11/03/20 04:46 RBC 3.30 10^6/uL (4.20-5.40) L 11/03/20 04:46 Hgb 9.9 g/dL (12.0-16.0) L 11/03/20 04:46 Hct 30.3 % (37.0-47.0) L 11/03/20 04:46 MCV 91.8 fL (81.0-99.0) 11/03/20 04:46 MCH 30.0 pg (27.0-31.0) 11/03/20 04:46 MCHC 32.7 g/dL (32.0-36.0) 11/03/20 04:46 RDW 12.8 % (12.0-15.0) 11/03/20 04:46 Plt Count 156 10^3/uL (130-450) 11/03/20 04:46 MPV 11.4 fL (7.9-10.8) H 11/03/20 04:46 Neut # (Auto) 2.9 10^3/uL (1.5-6.6) 11/03/20 04:46 Lymph # (Auto) 0.5 10^3/uL (1.5-3.5) L 11/03/20 04:46 [place] # (Auto) 0.3 10^3/uL (0.0-1.0) 11/03/20 04:46 Eos # (Auto) 0.0 10^3/uL (0.0-0.7) 11/03/20 04:46 Baso # (Auto) 0.0 10^3/uL (0.0-0.1) 11/03/20 04:46 Absolute Nucleated RBC 0.00 x10^3/uL 11/03/20 04:46 Nucleated RBC % 0.0 /100WBC 11/03/20 04:46 Sodium 134 mmol/L (135-145) L 11/03/20 04:46 Potassium 3.2 mmol/L (3.5-5.0) L 11/03/20 04:46 Chloride 103 mmol/L (101-111) 11/03/20 04:46 Carbon Dioxide 24 mmol/L (21-32) 11/03/20 04:46 Anion Gap 7.0 (6-13) 11/03/20 04:46 BUN 5 mg/dL (6-20) L 11/03/20 04:46 Creatinine 0.5 mg/dL (0.4-1.0) 11/03/20 04:46 Estimated GFR (MDRD) 120 (>89) 11/03/20 04:46 Glucose 208 mg/dL (70-100) H 11/03/20 04:46 Estimat Average Glucose 140 mg/dL (70-100) H 11/02/20 04:40 Hemoglobin A1c % 6.5 % (4.27-6.07) H 11/02/20 04:40 Lactic Acid 2.1 mmol/L (0.5-2.2) 11/01/20 23:43 Calcium 8.1 mg/dL (8.5-10.3) L 11/03/20 04:46 Phosphorus 2.7 mg/dL (2.5-4.6) 11/03/20 04:46 Magnesium 1.5 mg/dL (1.7-2.8) L 11/03/20 04:46 Total Bilirubin 0.7 mg/dL (0.2-1.0) 11/01/20 20:42 AST 28 IU/L (10-42) 11/01/20 20:42 ALT 20 IU/L (10-60) 11/01/20 20:42 Alkaline Phosphatase 60 IU/L (42-121) 11/01/20 20:42 Ammonia 11.0 umol/L (7-35) 11/01/20 21:14 Total Creatine Kinase 199 IU/L (22-269) 11/01/20 20:42 Total Protein 7.5 g/dL (6.7-8.2) 11/01/20 20:42 Albumin 3.6 g/dL (3.2-5.5) 11/01/20 20:42 Globulin 3.9 g/dL (2.1-4.2) 11/01/20 20:42 Albumin/Globulin Ratio 0.9 (1.0-2.2) L 11/01/20 20:42 TSH 1.52 uIU/mL (0.34-5.60) 11/01/20 04:40 Urine Color YELLOW 11/01/20 22:17 Urine Clarity HAZY (CLEAR) 11/01/20 22:17 Urine pH 5.5 PH (5.0-7.5) 11/01/20 22:17 Ur Specific [place] 1.020 (1.002-1.030) 11/01/20 22:17 Urine Protein 30 mg/dL (NEGATIVE) H 11/01/20 22:17 Urine Glucose (UA) NEGATIVE mg/dL (NEGATIVE) 11/01/20 22:17 Urine Ketones TRACE mg/dL (NEGATIVE) 11/01/20 22:17 Urine Occult Blood MODERATE (NEGATIVE) H 11/01/20 22:17 Urine Nitrite POSITIVE (NEGATIVE) H 11/01/20 22:17 Urine Bilirubin NEGATIVE (NEGATIVE) 11/01/20 22:17 Urine Urobilinogen 0.2 (NORMAL) E.U./dL (NORMAL) 11/01/20 22:17 Ur Leukocyte Esterase NEGATIVE (NEGATIVE) 11/01/20 22:17 Urine RBC 6-10 /HPF (0-5) H 11/01/20 22:17 Urine WBC 0-3 /HPF (0-5) 11/01/20 22:17 Ur Squamous Epith Cells FEW Squamous (<= Few) 11/01/20 22:17 Urine Bacteria Many /HPF (None Seen) H 11/01/20 22:17 Urine Casts 0-2 Course Granular /LPF 11/01/20 22:17 Ur Microscopic Review INDICATED 11/01/20 22:17 Urine Culture Comments INDICATED 11/01/20 22:17 Nasal Adenovirus (PCR) NOT DETECTED 11/01/20 21:56 Nasal B. parapertussis DNA (PCR) NOT DETECTED 11/01/20 21:56 Nasal Coronavir 229E PCR NOT DETECTED 11/01/20 21:56 Nasal Coronavir HKU1 PCR NOT DETECTED 11/01/20 21:56 Nasal Coronavir NL63 PCR NOT DETECTED 11/01/20 21:56 Nasal Coronavir OC43 PCR NOT DETECTED 11/01/20 21:56 Nasal Enterovir/Rhinovir PCR NOT DETECTED 11/01/20 21:56 Nasal Influenza B PCR NOT DETECTED 11/01/20 21:56 Nasal Influenza A PCR NOT DETECTED 11/01/20 21:56 Nasal Parainfluen 1 PCR NOT DETECTED 11/01/20 21:56 Nasal Parainfluen 2 PCR NOT DETECTED 11/01/20 21:56 Nasal Parainfluen 3 PCR NOT DETECTED 11/01/20 21:56 Nasal Parainfluen 4 PCR NOT DETECTED 11/01/20 21:56 Nasal RSV (PCR) NOT DETECTED 11/01/20 21:56 Nasal B.pertussis DNA PCR NOT DETECTED 11/01/20 21:56 Nasal C.pneumoniae (PCR) NOT DETECTED 11/01/20 21:56 Sb Human Metapneumo PCR NOT DETECTED 11/01/20 21:56 Nasal M.pneumoniae (PCR) NOT DETECTED 11/01/20 21:56 Nasal SARS-CoV-2 (PCR) NOT DETECTED 11/01/20 21:56 Urine Opiates Screen NEGATIVE (NEGATIVE) 11/01/20 22:17 Ur Oxycodone Screen NEGATIVE (NEGATIVE) 11/01/20 22:17 Urine Methadone Screen NEGATIVE (NEGATIVE) 11/01/20 22:17 Ur Propoxyphene Screen NEGATIVE (NEGATIVE) 11/01/20 22:17 Ur Barbiturates Screen NEGATIVE (NEGATIVE) 11/01/20 22:17 Ur Tricyclics Screen NEGATIVE (NEGATIVE) 11/01/20 22:17 Ur Phencyclidine Scrn NEGATIVE (NEGATIVE) 11/01/20 22:17 Ur Amphetamine Screen NEGATIVE (NEGATIVE) 11/01/20 22:17 U Methamphetamines Scrn NEGATIVE (NEGATIVE) 11/01/20 22:17 U Benzodiazepines Scrn NEGATIVE (NEGATIVE) 11/01/20 22:17 Urine Cocaine Screen NEGATIVE (NEGATIVE) 11/01/20 22:17 U Cannabinoids Screen NEGATIVE (NEGATIVE) 11/01/20 22:17 Ethyl Alcohol < 5.0 mg/dL 11/02/20 08:38 Hep Bs Antigen Cancelled 11/03/20 22:38 Hep Bs Ag Confirmation Cancelled 11/03/20 22:38 Hepatitis C Antibody Cancelled 11/03/20 22:38 Hep C Ab Signal/Cutoff Cancelled 11/03/20 22:38 HCV RNA (PCR) IUs/ml Cancelled 11/03/20 22:38 HCV RNA PCR log IUs/ml Cancelled 11/03/20 22:38 Hepatitis C RNA Comment Cancelled 11/03/20 22:38 HIV-1 Ab Confirm Cancelled 11/03/20 22:38 HIV-1 RNA, Qual (TMA) Cancelled 11/03/20 22:38 HIV-2 Antibody Conf Cancelled 11/03/20 22:38 HIV 1&2 Ag/Ab, 4th Gen Cancelled 11/03/20 22:38 HIV 1&2 Antibody Rapid Cancelled 11/03/20 22:38 ABX Reporting Has patient been on IV antibiotics over the past 48 hours?: No Current Medications - Current Medications Current Medications: Active Medications Acetaminophen (Acetaminophen 160 Mg/5 Ml Susp Udc) 640 mg PO Q4H PRN PRN Reason: Fever >101 Atropine Sulfate (Atropine 1% Ophth Drops 2 Ml) 1 - 4 drops SL Q2H PRN PRN Reason: Excessive secretions Carboxymethylcellulose (Carboxymethylcellulose Ophth Drops) 1 drops EACHEYE QID PRN PRN Reason: Dry Eye Glycopyrrolate (Glycopyrrolate 1 Mg/5 Ml Vial) 0.2 mg SUBQ Q4HR PRN PRN Reason: EXCESSIVE SECRETIONS Levetiracetam (Levetiracetam 500 Mg/5 Ml Udc) 500 mg PO BID [facility] Last Admin: 11/07/20 09:07 Dose: 500 mg Documented by: Loperamide HCl (Loperamide 2 Mg Capsule) 2 mg PO Q2H PRN PRN Reason: Diarrhea Lorazepam (Lorazepam 2 Mg/Ml Vial) 1 mg IVP Q6H PRN PRN Reason: Anxiety/Agitation Morphine Sulfate (Morphine Robina 10 Mg/0.5 Ml Oral Syringe) 10 mg SL Q2HR PRN PRN Reason: Dyspnea Last Admin: 11/04/20 18:39 Dose: 10 mg Documented by: Nicotine (Nicotine 14 Mg Patch) 1 patch TOP DAILY [facility] Last Admin: 11/07/20 09:07 Dose: 1 patch Documented by: Ondansetron HCl (Ondansetron 4 Mg/2 Ml Vial) 4 mg IVP Q6HR PRN PRN Reason: Nausea / Vomiting Last Admin: 11/04/20 02:05 Dose: 4 mg Documented by: Ondansetron HCl (Ondansetron Odt 4 Mg Tablet) 4 mg TL Q8H PRN PRN Reason: Nausea / Vomiting Polyethylene Glycol (Polyethylene Glycol 3350 17 Gm Packet) 17 gm PO DAILY [facility] Last Admin: 11/07/20 09:07 Dose: 17 gm Documented by: Scopolamine HBr (Scopolamine Patch) 1 patch TOP Q3D [facility] Last Admin: 11/07/20 00:33 Dose: 1 patch Documented by: Sodium Chloride (Sodium Chloride Flush 0.9% 10 Ml Syringe) 10 ml IVP 0100,0900,1700 [facility] Last Admin: 11/07/20 09:00 Dose: Not Given Documented by: No Known Home Medications 11/02/20
[2020-11-08] MEDS: NICOTINE 14 MG PATCH TOP SCH (09:08)
[2020-11-08] MEDS: levETIRAcetam 500 MG/5 ML UDC PO SCH ×2 (09:09→21:07)
[2020-11-08] MEDS: polyethylene glycoL 3350 17 GM PACKET PO SCH (09:10)
[2020-11-08] MEDS: SODIUM CHLORIDE FLUSH 0.9% 10 ML SYRINGE IVP SCH ×2 (09:12→16:32)
[2020-11-08 12:28] LABS: C. PNEUMONIAE- RESP PCR PANEL NOT DETECTED
[2020-11-09] MEDS: SODIUM CHLORIDE FLUSH 0.9% 10 ML SYRINGE IVP SCH ×2 (01:57→08:24)
[2020-11-09 07:57] VITALS: BP 113/50
--- NOTE | 2020-11-09 08:16 | Discharge Plan ---
Discharge Plan for SNF / [facility] - Discharge Plan And Transition Orders Problem Reviewed?: Yes Disposition: 50 Hospice/Home DC/Xfer Condition: Serious Allergies and Adverse Reactions: Allergies Allergy/AdvReac Type Severity Reaction Status Date / Time No Known Drug Allergies Allergy Verified 11/01/20 20:29 Health Concerns: hospice care, seizure Plan of Treatment: followup with hospice care in [place], continue Keppra for seizure Care Goals: quality of life care, hospice care, comfort measure Assessment: discussed with pt, and pt's son prior to, they agreed the care plan and hospice care. - SNF / [facility] Transition Orders Admit to (Facility): [facility] Under the care of (Name): , hospice care Discharge Diagnosis: lesion of brain, pulmonary malignant neoplasm, liver metastasis, seizure, UTI, tobacco use, AMS, Medicare Certification Statement: I certify that [facility] care is medically necessary on a continuing basis for any of the conditions for which she/he is receiving care during hospitalization. Notify PCP of admission and forward orders to primary provider for signature. Other Notification Orders: Call PCP immediately if patient develops dyspnea, chest pain/tightness or edema. House Bowel Program: Yes Additional Bowel Program Orders: If no BM after 2 days, nurse may give M.O.M. 30ml PO PRN and/or ducolax Supp 1 DE and/or CLEO 250mg P.O., and/or senna 1-2 tabs PO. On day 3 nurse may give repeat above order until residents constipation is resolved. Annual Influenza Vaccine (between Jun 20 and January 17): Yes Two-step PPD per [facility] [id number] or approved exception documents: Yes Treatments & Other Orders: followup with hospice care, focus on quality of life and comfortable care in [place], continue Keppra for seizure Medication Orders: PLEASE REFER TO THE DISCHARGE MEDICATION LIST. Insulin Orders?: No - Medications New Prescriptions: LORazepam [Ativan] 0.5 mg PO Q6H PRN #10 tablet PRN Reason: Anxiety Atropine 1% Ophth Drops [Isopto Atropine 1% Ophth Drops] 1 - 4 drops SL Q2H PRN #1 bottle PRN Reason: Excessive secretions levETIRAcetam [Keppra] 500 mg PO BID #20 udc Morphine Sulfate [Morphine Sulf Oral (Roxanol)] 5 mg PO Q2H PRN #30 ml PRN Reason: Pain/Dyspnea Scopolamine Patch [Transderm-Scop] 1 patch TOP Q3D #2 patch - Diet Type: Geriatric Texture: Puree Liquids: Thin May have monthly special meal: Yes
[2020-11-09] MEDS: levETIRAcetam 500 MG/5 ML UDC PO SCH (08:23)
[2020-11-09] MEDS: NICOTINE 14 MG PATCH TOP SCH (08:24)
[2020-11-09] MEDS: polyethylene glycoL 3350 17 GM PACKET PO SCH (08:24)
--- NOTE | 2020-11-09 08:35 | DISCHARGE SUMMARY ---
"Discharge Summary Admit Date: 11/01/20 Discharge Date: 11/09/20 Discharging Provider: Jere Varghese Primary Care Provider: hospice care Condition at Discharge: Serious Discharge Disposition: 50 Hospice/Home DC/Xfer Discharge Facility Name: [facility] - DIAGNOSES Discharge Diagnoses with Status of Each Condition: (1) Lesion of brain MRI of the brain show large mass in the left frontal lobe. later in hospital, Patient develop seizure. Patient's DPOA choose hospice care for patient. Patient was discharged to [facility] for hospice care (2) encounter to hospice care pt had comfortable care in hospital per pt's DPOA requests, and hospice care for d/c to [facility]. (3) Seizures after pt had Keppra, pt has no more seizure. pt is prescribed keppra for d/c (4) Altered mental status Improved (5) Pulmonary malignant neoplasm Work-up during this hospitalization showed multiple lung masses bilaterally which are new findings. This is considered to be malignant and probably her primary focus. hospice care for d/c to [facility]. (6)liver metastasis Work-up show right hepatic lobe with liver metastasis. hospice care for d/c to [facility]. (7) UTI (urinary tract infection) She got IV ceftriaxone treatment in hospital, then comfortable care, followup with hospice care now. - HPI History of Present Illness: Patient was found fall down in the floor, very confused, combative. Patient lives alone. She has no food in the home. Her home was cold. Patient was found to have garbled speaking in ER. Preliminary CAT scan of the head state unremarkable intracranial finding. Urinalysis indicated urinary tract infection. Patient was admitted for mental status change secondary to urine tract infection. - CONSULTS | PROCEDURES Consultations: Dr. Ames Procedures: hospice care - HOSPITAL COURSE Hospital Course: Patient was admitted for AMS secondary to UTI. Then patient was found to have some respiratory distress. Patient had a chest x-ray follow with CAT scan Which show multiple large mass in bilaterally lung and liver metastasis. MRI of brain show large mass in left frontal lobe. Patient Developed seizure in the hospital, patient was prescribed Keppra. After patient was treated with Keppra, her seizure was controlled. After our provider discussed with the patient's DPOA, DPOA choose comfortable care in the hospital and hospice care after discharge. Hospice care Dr. Ames saw the patient and accepted patient. Patient was discharge to [facility] for hospice care - ALLERGIES Allergies/Adverse Reactions: Allergies Allergy/AdvReac Type Severity Reaction Status Date / Time No Known Drug Allergies Allergy Verified 11/01/20 20:29 - MEDICATIONS Home Medications: Ambulatory Orders Medication Instructions Recorded Confirmed Atropine 1% Ophth Drops [Isopto 1 - 4 drops SL Q2H PRN #1 bottle 11/09/20 Atropine 1% Ophth Drops] LORazepam [Ativan] 0.5 mg PO Q6H PRN #10 tablet 11/09/20 Morphine Sulfate [Morphine Sulf 5 mg PO Q2H PRN #30 ml 11/09/20 Oral (Roxanol)] Scopolamine Patch [Transderm-Scop] 1 patch TOP Q3D #2 patch 11/09/20 levETIRAcetam [Keppra] 500 mg PO BID #20 udc 11/09/20 - PHYSICAL EXAM AT DISCHARGE General Appearance: positive: No acute distress, Alert. negative: Lethargic Eyes Bilateral: positive: Normal inspection, PERRL, No lid inflammation ENT: positive: ENT inspection nml, No signs of dehydration. negative: Purulent nasal drainage Neck: positive: Nml inspection, Trachea midline. negative: Thyromegaly, Tracheal deviation Respiratory: positive: Chest non-tender. negative: Wheezes Cardiovascular: positive: Regular rate & rhythm, No murmur. negative: Tachycardia, Bradycardia, Systolic murmur, Diastolic murmur Peripheral Pulses: positive: 2+ Abdomen: positive: Non-tender, Nml bowel sounds, No distention. negative: Tenderness, Guarding, Rebound Back: positive: Nml inspection Skin: positive: Color nml, Warm, Dry. negative: Cyanosis, Diaphoresis, Pallor Extremities: positive: Non-tender, Nml appearance. negative: Calf tenderness Neurologic/Psychiatric: positive: Sensation nml, Other (slow garbled speech). negative: Weakness, Sensory loss, Facial droop - LABS Result Diagrams: 11/03/20 04:46 11/03/20 04:46 - FOLLOW UP Follow Up: Follow-up with hospice care in [facility] - TIME SPENT Time Spent in Discharge (Minutes): 30"
== END 2020-11-09 08:50 | disposition hospice, home (50) | DRG 55 ==
LOC: EDUNIT# → ED 20:18 → MS2 23:28
PROVIDERS: ADMIT Internal Medicine; ATTEND Nurse Practitioner Gerontology
DX: C79.31 Secondary malignant neoplasm of brain (principal); C34.12 Malignant neoplasm of upper lobe, left bronchus or lung; I10 Essential (primary) hypertension; C34.31 Malignant neoplasm of lower lobe, right bronchus or lung; N30.01 Acute cystitis with hematuria; C78.7 Secondary malignant neoplasm of liver and intrahepatic bile duct; E46 Unspecified protein-calorie malnutrition; C79.72 Secondary malignant neoplasm of left adrenal gland; R56.9 Unspecified convulsions; E87.6 Hypokalemia; E83.42 Hypomagnesemia; R41.0 Disorientation, unspecified; B96.20 Unspecified Escherichia coli [E. coli] as the cause of diseases classified elsewhere; J44.9 Chronic obstructive pulmonary disease, unspecified; F17.200 Nicotine dependence, unspecified, uncomplicated; J40 Bronchitis, not specified as acute or chronic; E11.9 Type 2 diabetes mellitus without complications; K74.60 Unspecified cirrhosis of liver; Z66 Do not resuscitate; Z51.5 Encounter for palliative care; Z68.20 Body mass index [BMI] 20.0-20.9, adult; Z91.81 History of falling
CPT/HCPCS: 36415; 70450; 70553; 71045; 71260; 80048; 80053; 81001; 82140; 82550; 83036; 83605; 83735; 84100; 84443; 85025; 87040; 87086; 87181; 87631; 93005; 96361; 96365; 97161; 97165; 97530; 99285; A9270; A9585; J1650; J1815; J2060; J3490; Q9967; 0202U; 80074; 80306; 80320; 81003; 86803; 87340; 87389

== ENCOUNTER 2020-11-09 08:52 | Outpatient (CLI) | payer MEDICARE, OTHER | END 2020-11-09 08:53 | disposition other institution (70) | LOC: EMS 08:52 | PROVIDERS: ATTEND Surgery | DX: Z51.5 Encounter for palliative care (principal); Z74.01 Bed confinement status | CPT/HCPCS: A0425; A0428 ==